=== PATIENT | male | born 1955 | race Caucasian/White ===

== ENCOUNTER 2020-12-21 13:24 | Outpatient (CLI) | payer SELFPAY ==
[2020-12-22 14:13] LABS: COVID-19 RT-PCR UVMMC Result Negative (Negative)
== END 2020-12-21 13:25 | disposition home or self-care (01) ==
PROVIDERS: PCP Nurse Practitioner Family; Visit Provider Nurse Practitioner Family
DX: Z20.822 Contact with and (suspected) exposure to COVID-19 (principal)
CPT/HCPCS: U0003

== ENCOUNTER 2021-01-02 03:18 | Inpatient (IN) | payer MEDICARE, SELFPAY ==
[2021-01-02] VITALS (25 sets, daily range): BP systolic 113–173; BP diastolic 76–99; PULSE 65–94; RESP 16–29; TEMP 36.5–36.9; O2SAT 94–98
--- NOTE | 2021-01-02 03:33 | NUR.NOTE ---
Nursing Note: Living at the [facility] for last three weeks and slid down between chair and bed earlier today. Pt has amputation to left lower extremity. Hx of alcohol use, but has not drank any in last year. History of uncontrolled diabetes with levels 350-450 at baseline.
[2021-01-02 03:58] LABS: Abs Immature Grans 0.01 10^3/uL (0.0-0.06); Absolute Basophil Count 0.02 10^3/uL (0.0-0.2); Absolute Eosinophil Count 0.21 10^3/uL (0.0-0.7); Absolute Lymphocyte Count 0.87 10^3/uL (1.2-3.4); Absolute Monocyte Count 0.55 10^3/uL (0.1-0.8); Absolute Neutrophil Count 4.08 10^3/uL (1.2-6.7); Basophils % 0.3; Eosinophils % 3.7; HCT 40.3 % (40.0-50.0); HGB 14.1 g/dL (13.5-17.5); Immature Grans % 0.2; Lymphocytes % 15.2; MCH 32.4 pg (27.0-33.0); MCV 92.6 fL (80-95); MPV 10.6 fL (8.0-11.0); Monocytes % 9.6; Nucleated RBC 0 %; RBC 4.35 10^6/uL (4.36-5.78); RDW 13.9 % (11.8-14.1); RDW-SD 47.8 fL; WBC 5.74 10^3/uL (4.4-10.8)
--- NOTE | 2021-01-02 03:59 | ED.GENADUL_ITS ---
Discharge Plan Disposition Patient Disposition: [facility] INPATIENT Condition: Serious Discharge Details Clinical Impression: Altered mental status, Hepatic encephalopathy, Hyperglycemia Admit Date/Time: 01/03/21 08:05 Admit Provider: Ousmane Friedman Attending Provider: Ousmane Friedman Primary Care Provider: Tammie Woodward ED Provider: Juaquin Mendoza Discharge Data Discharge Date/Time-TO BE ENTERED AT DEPARTURE: 01/02/21 06:09 Medical Decision Making 4:00 ?65-year-old male history of diabetes, hypertension, prior alcohol abuse, cirrhosis, elevated ammonia on lactulose, sent from assisted living facility with altered mental status, hallucinating and with nausea and vomiting. Apparently had an episode with heart rate above 200. Patient is hypertensive. Afebrile and not currently tachycardic. Suspect acute delirium, consider Warnicke's encephalopathy, hepatic encephalopathy versus urinary tract infection. CT head to assess for intracranial pathology. EKG to assess for arrhythmia. Will administer thiamine 100 mg IV. 5:26 --CT head interpreted by radiology, no acute intracranial abnormality. Screening ECG was reviewed and interpreted by me: Please see report, left bundle branch pattern present, no STEMI. Labs reviewed and patient does have elevated glucose which is consistent with his baseline 300-400 range. He has no anion gap acidosis. He does have hyperammonia, unclear of baseline. We will give him a dose of lactulose. Urinalysis reviewed and negative. Suspect hepatic encephalopathy. Plan to hospitalize as patient cannot safely be transferred back to assisted living. I called and spoke with Dr. Friedman, on-call hospitalist, discussed ED presentation course including diagnostics, he will admit the patient. I called [facility] supervisor and spoke with her about patient needs including frequent redirection and fall risk to ensure safe transition to [facility] floor. --Patient noted to be slightly anxious and also with persistent nausea and dry heaving. I will give Haldol 2 mg IM for his nausea and as anxiolytic. HPI General Mode of arrival: EMS . Date/Time Provider Initiated Documentation: 01/02/21 03:46 . Limitations to Documentation: altered mental status . Information obtained by: patient and EMS . HPI Narrative: 65-year-old male with multiple medical problems including prior history of alcoholism, history of hepatitis C that was treated, cirrhosis, esophageal varices, status post left leg AKA 07/05 complicated by postoperative infection, diabetes type 2, psoriasis, hypertension, COPD, anxiety, peripheral vascular disease, presents from [place] in assisted living facility with altered mental status. Per staff at the assisted living facility patient has been hallucinating and not able to form clear sentences recently. Is noted to have shaking, nausea and vomiting. There is note in transfer paperwork that he had a resting heart rate of 240 but then decreased to 91. Patient notes chronic unchanged bilateral leg pain. He denies any new pain. He has no complaint. History and review of systems is limited secondary to altered mental status. Related Data Home Medications Medication Instructions Recorded Confirmed Xifaxan 550 mg PO BID 01/02/21 01/02/21 buspirone 15 mg PO BID 01/02/21 01/02/21 docusate sodium [Colace] 100 mg PO BID 01/02/21 01/02/21 famotidine 10 mg PO DAILY 01/02/21 01/02/21 ferrous sulfate 325 mg PO Q OTHER DAY 01/02/21 01/02/21 furosemide 40 mg PO DAILY 01/02/21 01/02/21 melatonin 3 mg PO HS PRN 01/02/21 01/02/21 multivitamin 1 tab PO DAILY 01/02/21 01/02/21 nystatin 1 applic TOPICAL BID 01/02/21 01/02/21 omeprazole 20 mg PO BID 01/02/21 01/02/21 ondansetron HCl [Zofran] 4 mg PO Q6H PRN 01/02/21 01/02/21 polyethylene glycol 3350 [Miralax] 17 g PO BID 01/02/21 01/02/21 propranolol 20 mg PO BID 01/02/21 01/02/21 tramadol 50 mg PO BID 01/02/21 01/02/21 trazodone 50 mg PO HS 01/02/21 01/02/21 venlafaxine 75 mg PO DAILY 01/02/21 01/02/21 vitamin B complex 1 cap PO DAILY 01/02/21 01/02/21 zonisamide 75 mg PO BID 01/02/21 01/02/21 acetaminophen [Tylenol] 650 mg PO Q6H PRN #60 tab 01/05/21 blood sugar diagnostic [Advanced #100 ea 01/05/21 Gluc Meter Test Strip] blood-glucose meter #1 ea 01/05/21 insulin aspart U-100 [Novolog 12 unit SUBCUT 0800,1200,1700 #15 01/05/21 Flexpen U-100 Insulin] ml insulin glargine [Lantus Solostar 36 unit SUBCUT HS #15 ml 01/05/21 U-100 Insulin] lactulose 30 g PO Q2H PRN PRN #1500 ml 01/05/21 lactulose 30 g PO QID #4000 ml 01/05/21 sennosides [senna] 8.6 mg PO BID #60 tab 01/05/21 spironolactone 100 mg PO DAILY #30 tab 01/05/21 lancets [Lancets, Super Thin] #200 ea 01/06/21 Previous Rx's Medication Instructions Recorded acetaminophen [Tylenol] 650 mg PO Q6H PRN #60 tab 01/05/21 blood sugar diagnostic [Advanced #100 ea 01/05/21 Gluc Meter Test Strip] blood-glucose meter #1 ea 01/05/21 insulin aspart U-100 [Novolog 12 unit SUBCUT 0800,1200,1700 #15 01/05/21 Flexpen U-100 Insulin] ml insulin glargine [Lantus Solostar 36 unit SUBCUT HS #15 ml 01/05/21 U-100 Insulin] lactulose 30 g PO Q2H PRN PRN #1500 ml 01/05/21 lactulose 30 g PO QID #4000 ml 01/05/21 sennosides [senna] 8.6 mg PO BID #60 tab 01/05/21 spironolactone 100 mg PO DAILY #30 tab 01/05/21 lancets [Lancets, Super Thin] #200 ea 01/06/21 Allergies Allergy/AdvReac Type Severity Reaction Status Date / Time citalopram Allergy Unknown Unverified 01/02/21 03:33 codeine Allergy Unknown Unverified 01/02/21 03:33 interferon beta-1a Allergy Unknown Unverified 01/02/21 03:33 morphine Allergy Unknown Unverified 01/02/21 03:33 peginterferon maral-2a Allergy Unknown Unverified 01/02/21 03:33 General Stated Complaint: AMS/LOC RODRIGO: 2 Review of Systems Unobtainable due to mental status [facility] Medical History (Updated 01/05/21 @ 11:50 by Rina Nails MD) Acute pain of both shoulders Alcohol abuse, in remission Alcoholic cirrhosis of liver with ascites Anemia combination of hemolysis, iron deficiency, anemia of chronic disease, blood loss. 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 Obesity Old lacunar stroke without late effect right frontal and left parietal lobe lacunar infarcts on MRI brain from 04/2020 Psoriasis Psoriatic arthritis Squamous cell carcinoma Streptococcal sepsis with septic left knee Surgical History (Updated 01/02/21 @ 13:21 by Rina Nails MD) History of arthroplasty of left knee requiring explantation due to septic left knee S/P AKA (above knee amputation) unilateral Due to multiple infections in left knee prosthesis Social History (Updated 01/02/21 @ 13:30 by Rina Nails MD) Smoking/Tobacco Use Status: Never Smoking risk assessment performed?: Yes Alcohol Intake: former Substance use type: former substance user and crack/cocaine Do you feel safe at home: Yes Exam Const General: no acute distress Nutritional Appearance: overweight Orientation: alert Limitations: altered mental status HENMT Head: normocephalic and atraumatic Mouth: moist mucous membranes Eyes Conjunctivae: normal conjunctivae Sclera: normal sclerae Neck Neck: trachea midline and supple Resp Auscultation: clear to auscultation bilaterally, no rales, no rhonchi and no wheezes Cardio Rate: regular rate and not tachycardic Rhythm: regular rhythm GI Palpation: soft, not firm, no guarding, no masses, not rigid and nontender Skin Rashes: rashes noted (Psoriatic rash back) Neuro General: patient alert, patient awake, oriented Patient Orientation: Person and Confused and tone normal Cognition: abnormal cognition Speech: other (Delayed response with word finding difficulty) Motor: other (No facial weakness, 5 out of 5 strength bilateral upper extremities) Sensory Exam: other (Sensation intact bilateral upper extremities) Extrem General: no edema Course Vital Signs Vital signs: Vital Signs Temperature 36.8 C 01/02/21 03:23 Pulse 88 01/02/21 03:23 Respiratory Rate 22 01/02/21 03:23 Blood Pressure 136/83 01/02/21 03:23 Pulse Oximetry 96 01/02/21 03:23 Temperature 36.8 C 01/02/21 03:23 Temperature Source Skin 01/02/21 03:23 Pulse 88 01/02/21 03:23 Respiratory Rate 18 01/02/21 03:36 Respiratory Effort Non-Labored 01/02/21 03:36 Respiratory Depth Normal 01/02/21 03:36 Respiratory Pattern Normal 01/02/21 03:36 Blood Pressure 136/83 01/02/21 03:23 Blood Pressure Position Sitting 01/02/21 03:23 Pulse Oximetry 96 01/02/21 03:23 Oxygen Delivery Method Room Air 01/02/21 03:23 Oxygen Flow Rate 0 01/02/21 03:23 Pain Level 4 01/02/21 03:23 Comment 01/02/21 03:23
--- NOTE | 2021-01-02 04:00 | RT.EKG_ITS ---
APPROVED REPORT Exam: Resting ECG Patient Location: E HR:77 bpm ECG Measurements Heart Rate 77 AXIS MO 152 P -38 QRSd 128 QRS -53 QT 416 T 42 QTc 471 Conclusion Sinus rhythm...normal P axis, V-rate 60- 99 Left bundle branch block...QRSd>120, broad/notched R
[2021-01-02] MEDS: THIAMINE 100 MG in Normal Saline 100 ML 200 MG IVPB (04:16)
[2021-01-02 04:20] LABS: ALT 32 U/L (16-63); AST 28 U/L (15-37); Alkaline Phosphatase 190 U/L (46-116); Anion Gap 7.4 mmol/L (3-11); BUN 19 mg/dL (7-18); Bilirubin, Total 1.9 mg/dL (0.2-1.0); CO2 28.6 mmol/L (21.0-32.0); CREATININE 1.1 mg/dL (0.70-1.30); Calcium 8.9 mg/dL (8.5-10.1); Chloride 99 mmol/L (98-107); Glucose 393 mg/dL (74-106); Magnesium 1.8 mg/dL (1.8-2.4); Platelet Count 97 10^3/uL (130-400); Potassium 4.4 mmol/L (3.5-5.1); Sodium 135 mmol/L (136-145); TSH (W/Ref FT4) 1.81 uIU/mL (0.36-3.74); Total Protein 7.6 g/dL (6.4-8.2); Troponin I < 0.05 ng/mL (<0.06)
[2021-01-02 04:21] LABS: Ammonia 113 umol/L (11-32)
[2021-01-02 04:22] LABS: ETHANOL BLOOD < 3.0 mg/dL (<3)
[2021-01-02 04:31] LABS: Source Nasal/Nares
[2021-01-02 04:34] LABS: Bilirubin Negative (Negative); Blood Negative (Negative); Clarity Sl Cloudy (Clear); Glucose 500 mg/dL (Negative); Ketones Negative (Negative); Leukocyte Esterase Negative (Negative); Nitrite Negative (Negative); Urobilinogen 0.2 EU/dL (Up TO 0.2); pH 7.5 (5-8)
[2021-01-02 04:45] LABS: *AMPHETAMINES SCREEN URINE Negative (Negative); *BARBITURATES SCREEN URINE Negative (Negative); *BENZODIAZEPINES SCREEN URINE Negative (Negative); Cannabinoids THC Negative (Negative); Cocaine Screen,Urine Negative (Negative); METHADONE URINE SCREEN Negative (Negative); OPIATES URINE SCREEN Negative (Negative)
[2021-01-02 04:46] LABS: Tricyclic Antidepressants Negative (Negative)
--- NOTE | 2021-01-02 05:00 | DI.CT_ITS ---
EXAM: CT HEAD WO CLINICAL HISTORY: altered mental status. TECHNIQUE: Imaging Protocol: Axial computed tomography images with coronal and sagittal reformatted images were created and reviewed COMPARISON: No exams were available for comparison FINDINGS: All images are degraded by motion artifact. There are no obvious skull fractures nor fluid in the visualized paranasal sinuses and mastoid air ce lls. There is no evidence of intracranial hemorrhage, mass effect, or shift of midline structures. There are no extra-axial fluid collections. The ventricles are not enlarged or shifted and there is no blo od within the ventricular system nor within the basal cisterns. There is some periventricular hypodensity consistent with chronic small vessel disease. This is most prominent in the left parietal region. IMPRESSION: There is periventricular hypodensity consistent with chronic small vessel disease, most prominent in the left parietal region. If clinically indicated follow-up MRI can be performed for added sensitivity and specificity. RADIATION DOSE DELIVERED: 728.87mGy.cm Total DLP DATA REPOSITORY: All CT scans at this facility are submitted to the National Radiology Data Registry (NRDR) Dose Index Registry (DIR) with the [employer] (ACR). RADIATION OPTIMIZATION: All CT scans at this facility use at least one of these dose optimization te chniques: automated exposure control; mA and/or kV adjustment per patient size (includes targeted exa ms where dose is matched to clinical indication); or iterative reconstruction.
--- NOTE | 2021-01-02 05:21 | DI.VRAD_ITS ---
PROCEDURE INFORMATION: Exam: CT Head Without Contrast Exam date and time: 01/02/2021 3:50 AM Age: 65 years old Clinical indication: Altered mental status/memory loss and speech disturbance; Confusion or disorientation; Unspecified TECHNIQUE: Imaging protocol: Computed tomography of the head without contrast. Radiation optimization: All CT scans at this facility use at least one of these dose optimization techniques: automated exposure control; mA and/or kV adjustment per patient size (includes targeted exams where dose is matched to clinical indication); or iterative reconstruction. COMPARISON: No relevant prior studies available. FINDINGS: Brain: Normal. No hemorrhage. Unremarkable white matter. No mass effect. Cerebral ventricles: No ventriculomegaly. Bones/joints: Unremarkable. No acute fracture. Paranasal sinuses: Visualized sinuses are unremarkable. No fluid levels. Mastoid air cells: Visualized mastoid air cells are well aerated. Soft tissues: Unremarkable. IMPRESSION: No acute intracranial abnormality. Dictated and Authenticated by: Camilo Cavazos MD. Ordering:NIECY Reza MD
[2021-01-02] MEDS: Lactulose 20 GM/30 ML CUP 30 GM PO (05:26)
[2021-01-02] MEDS: Haloperidol 5 MG/ML VIAL 2 MG IM (05:51)
[2021-01-02 06:01] LABS: COVID-19 PCR Negative (Negative)
--- NOTE | 2021-01-02 06:03 | HPE_ITS ---
Date of service: 01/02/21 Time of Service: 06:03 Assessment and Plan Assessment and plan (1) Hepatic encephalopathy: Start date: 01/02/21 Status: Acute Assessment and plan: This is a 65-year-old gentleman with alcoholic cirrhosis and presenting with worsening hepatic encephalopathy. His ammonia level is elevated but other lab evaluation appear to be stable and his chronically unstable state. He will be admitted for observation and increase dosing of lactulose with follow-up of lab and mentation. He is a full code. Plans are for patient to return to the same living situation if he is safe. PT may want to evaluate him for safe transfer for wheelchair ambulation. (2) Hyperglycemia: Start date: 01/02/21 Status: Acute Assessment and plan: Patient has no history of diabetes or treatment for diabetes on his outpatient records. Before meals and at bedtime glucometers will be monitored with coverage using short acting insulin. Consider checking hemoglobin A1c. (3) Alcoholic cirrhosis of liver with ascites: Status: Chronic Assessment and plan: Lab appears stable with patient to be monitored as treating hepatic encephalopathy. Follow-up ammonia levels. Check prothrombin time. History of Present Illness History of Present Illness Chief Complaint: Altered mental status. Narrative: This is a 65-year-old male patient who resides at an assisted living in [facility] who was sent to the ED for evaluation because of altered mental status. He does have a history of alcoholic cirrhosis with encephalopathy on lactulose twice daily. He just moved to this facility about 1 week ago and it is uncertain whether his diet has changed or medications have been compliant. Evaluation in ED found no other reason for mental status changes and patient was admitted for treatment of hepatic encephalopathy. He does not appear to be far from his baseline and was admitted to observation. He is a full code. See ED report for review. Review of Systems Narrative: 13 point review of systems otherwise unrevealing or unobtainable with patient's confusion and encephalopathic state. He is a poor historian. [facility] Medical History (Updated 01/02/21 @ 10:13 by Ousmane Friedman) Alcoholic cirrhosis of liver with ascites Diabetes type 2, uncontrolled History of left above knee amputation Hypertension Surgical History (Updated 01/02/21 @ 06:09 by Ousmane Friedman) S/P AKA (above knee amputation) unilateral Social History Smoking/Tobacco Use Status: Never Smoking risk assessment performed?: Yes Alcohol Intake: former Substance use type: does not use Do you feel safe at home: Yes Meds Home Medications and Allergies Allergies Allergy/AdvReac Type Severity Reaction Status Date / Time citalopram Allergy Unknown Unverified 01/02/21 03:33 codeine Allergy Unknown Unverified 01/02/21 03:33 interferon beta-1a Allergy Unknown Unverified 01/02/21 03:33 morphine Allergy Unknown Unverified 01/02/21 03:33 peginterferon maral-2a Allergy Unknown Unverified 01/02/21 03:33 Home Medications Medication Instructions Recorded Confirmed Type acetaminophen [Tylenol] 650 mg PO Q6H PRN 01/02/21 01/02/21 History buspirone 15 mg PO BID 01/02/21 01/02/21 History docusate sodium [Colace] 100 mg PO BID 01/02/21 01/02/21 History famotidine 10 mg PO DAILY 01/02/21 01/02/21 History ferrous sulfate 325 mg PO Q OTHER DAY 01/02/21 01/02/21 History furosemide 40 mg PO DAILY 01/02/21 01/02/21 History ibuprofen 600 mg PO Q6H 01/02/21 01/02/21 History lactulose 30 ml PO BID 01/02/21 01/02/21 History melatonin 3 mg PO HS PRN 01/02/21 01/02/21 History multivitamin 1 tab PO DAILY 01/02/21 01/02/21 History nystatin 1 applic TOPICAL BID 01/02/21 01/02/21 History omeprazole 20 mg PO BID 01/02/21 01/02/21 History ondansetron HCl [Zofran] 4 mg PO Q6H PRN 01/02/21 01/02/21 History polyethylene glycol 3350 [Miralax] 17 g PO BID 01/02/21 01/02/21 History propranolol 20 mg PO BID 01/02/21 01/02/21 History rifaximin [Xifaxan] 550 mg PO BID 01/02/21 01/02/21 History sennosides [senna] 8.6 mg PO DAILY 01/02/21 01/02/21 History spironolactone 25 mg PO DAILY 01/02/21 01/02/21 History tramadol 50 mg PO BID 01/02/21 01/02/21 History trazodone 50 mg PO HS 01/02/21 01/02/21 History venlafaxine 75 mg PO DAILY 01/02/21 01/02/21 History vitamin B complex 1 cap PO DAILY 01/02/21 01/02/21 History zonisamide 75 mg PO BID 01/02/21 01/02/21 History Exam Narrative Exam Narrative: General: Patient appears older than stated age, oriented to person, possibly place and not to time. He is in no acute distress. Is sitting up in bed and is obese and appears fairly immobile state that he is wheelchair- bound. He does have a left AKA. HEENT: Normocephalic, coarsened facial features without swelling, eyes with pupils equal and reactive to light symmetrically, extraocular movement intact and sclera anicteric. Oropharynx with fair dentition and moist mucosa. Neck: Supple without JVD. Lungs: Fair aeration and clear to auscultation. Back: Stooped posture without CVA tenderness. Heart: Regular rate and rhythm with no appreciable murmurs or gallops. Abdomen: Obese contour, soft nontender to palpation with no focalizing guarding. Patient examined sitting up. Genitalia/rectal: Exam deferred. Extremities: Left AKA stump clean and dry, right lower extremity with edema which appears chronic and nonpitting, joints with decreased range of motion. Skin: Pale, warm and dry. Diffuse plaque-like rash with silver colored scales over trunk and mostly lower back consistent with severe plaque psoriasis. Neuro: Cranial nerves II through XII gross intact, no focal motor deficits. Patient is confused with some obtundation. To be metabolic. Psych: Decreased mentation as mentioned, affect flattened with little variation but fair eye contact. Mood appears depressed. No abnormal thought processes but patient confused. Remote and recent memory difficult to assess with metabolic state. Results Imaging Imaging Studies: Exam: CT Head Without Contrast Exam date and time: 01/02/2021 3:50 AM Age: 65 years old Clinical indication: Altered mental status/memory loss and speech disturbance; Confusion or disorientation; Unspecified TECHNIQUE: Imaging protocol: Computed tomography of the head without contrast. Radiation optimization: All CT scans at this facility use at least one of these dose optimization techniques: automated exposure control; mA and/or kV adjustment per patient size (includes targeted exams where dose is matched to clinical indication); or iterative reconstruction. COMPARISON: No relevant prior studies available. FINDINGS: Brain: Normal. No hemorrhage. Unremarkable white matter. No mass effect. Cerebral ventricles: No ventriculomegaly. Bones/joints: Unremarkable. No acute fracture. Paranasal sinuses: Visualized sinuses are unremarkable. No fluid levels. Mastoid air cells: Visualized mastoid air cells are well aerated. Soft tissues: Unremarkable. IMPRESSION: No acute intracranial abnormality. Dictated and Authenticated by: Camilo Cavazos MD. Labs Result diagrams: 01/02/21 03:50 01/02/21 03:50 Labs: Laboratory Results - last 24 hr 01/02/21 01/02/21 01/02/21 03:50 03:50 03:50 WBC 5.74 RBC 4.35 L Hgb 14.1 Hct 40.3 MCV 92.6 MCH 32.4 MCHC 35.0 RDW 13.9 Plt Count 97 L MPV 10.6 Immature Gran % 0.2 Neutrophils % 71.0 Lymphocytes % 15.2 Monocytes % 9.6 Eosinophils % 3.7 Basophils % 0.3 Nucleated RBC % 0 Absolute Neutrophils 4.08 Absolute Lymphocytes 0.87 L Absolute Monocytes 0.55 Absolute Eosinophils 0.21 Absolute Basophils 0.02 Sodium 135 L Potassium 4.4 Chloride 99 Carbon Dioxide 28.6 Anion Gap 7.4 BUN 19 H Creatinine 1.1 Estimated GFR/1.73 m2 >= 60.00 Glucose 393 H Calcium 8.9 Magnesium 1.8 Total Bilirubin 1.9 H AST 28 ALT 32 Alkaline Phosphatase 190 H Ammonia 113 H Troponin I < 0.05 Total Protein 7.6 Albumin 3.0 L TSH 1.81 Urine Color Urine Clarity Urine pH Ur Specific Rodney Urine Protein Urine Ketones Urine Blood Urine Nitrite Urine Bilirubin Urine Urobilinogen Ur Leukocyte Esterase Urine Glucose Urine Opiates Screen Urine Methadone Screen Ur Barbiturates Screen Ur Tricyclics Screen Ur Amphetamines Screen U Benzodiazepines Scrn Urine Cocaine Screen Ur THC Screen Ethyl Alcohol < 3.0 COVID-19 Source 01/02/21 01/02/21 01/02/21 04:10 04:10 04:15 WBC RBC Hgb Hct MCV MCH MCHC RDW Plt Count MPV Immature Gran % Neutrophils % Lymphocytes % Monocytes % Eosinophils % Basophils % Nucleated RBC % Absolute Neutrophils Absolute Lymphocytes Absolute Monocytes Absolute Eosinophils Absolute Basophils Sodium Potassium Chloride Carbon Dioxide Anion Gap BUN Creatinine Estimated GFR/1.73 m2 Glucose Calcium Magnesium Total Bilirubin AST ALT Alkaline Phosphatase Ammonia Troponin I Total Protein Albumin TSH Urine Color Yellow Urine Clarity Sl cloudy Urine pH 7.5 Ur Specific Rodney 1.020 Urine Protein Negative Urine Ketones Negative Urine Blood Negative Urine Nitrite Negative Urine Bilirubin Negative Urine Urobilinogen 0.2 Ur Leukocyte Esterase Negative Urine Glucose 500 H Urine Opiates Screen Negative Urine Methadone Screen Negative Ur Barbiturates Screen Negative Ur Tricyclics Screen Negative Ur Amphetamines Screen Negative U Benzodiazepines Scrn Negative Urine Cocaine Screen Negative Ur THC Screen Negative Ethyl Alcohol COVID-19 Source Nasal/nares Last Vital Signs Temp 36.8 C 01/02/21 03:23 Pulse 72 01/02/21 05:24 Resp 20 01/02/21 05:52 BP 113/83 01/02/21 05:24 Pulse Ox 98 01/02/21 05:06 COVID-19 Screening Have you, or household traveled for leisure in last 14 days?: No Had IN PERSON contact w/suspected or confirmed C-19 person: No
[2021-01-02 08:08] LABS: INR 1.1 (0.9-1.1); Prothrombin Time 11.5 sec (9.3-11.0)
--- NOTE | 2021-01-02 08:34 | INITIAL_ITS ---
- If Service Date Differs Date of service: 01/02/21 Time of Service: 11:42 Care Management Initial Assess REASON FOR HOSPITALIZATION:: Hepatic Encephalopathy PAST MEDICAL HISTORY/PAST SURGICAL HISTORY:: Alcoholic cirrhosis of liver with ascities, DM type 2 uncontrolled, left above knee amputation, hypertension, hyperglycemia PREVIOUS FUNCTIONAL STATUS/SOCIAL/FAMILY SUPPORTS:: Perez resides at [facility] assisted living [facility]. His brother Rich resides nearby in [place], [place]. CURRENT FUNCTIONAL STATUS:: Perez is currently confused. PT was preparing to work with him. Treatment plan Per MD: Suspect acute delirium, consider Warnicke's encephalopathy, hepatic encephalopathy versus urinary tract infection. CT head to assess for intracranial pathology. EKG to assess for arrhythmia. ADVANCE DIRECTIVES:: None on file at [facility]. CODE STATUS:: Full Code INSURANCE COVERAGE / FINANCIAL ISSUES:: Medicare CURRENT HOME/COMMUNITY SERVICES/EQUIPMENT:: Assisted living facility; level 3 at [facility]. PRIMARY CARE PHYSICIAN:: Tammie Woodward POTENTIAL DISCHARGE NEEDS:: Coordinated return to [facility]. PATIENT/FAMILY EDUCATION NEEDS:: Review discharge instructions, discuss Ask Me [employer]. ANTICIPATED BARRIERS TO DISCHARGE:: None identified. TRANSPORTATION:: Via private vehicle with his brother. PLAN:: Perez will return to [facility] when ready per MD. He will follow up with his PCP and plan of care as prescribed. He will transport via private vehicle with his brother, Rich.
[2021-01-02] MEDS: Lactulose 20 GM/30 ML CUP PO ×4 (08:56→21:33)
[2021-01-02] MEDS: Insulin Aspart 300 UNITS/3 ML PEN SC ×4 (08:56→21:37)
[2021-01-02] MEDS: Zonisamide 25 MG CAP 75 MG PO ×2 (08:59→20:18)
[2021-01-02] MEDS: Famotidine 20 MG TAB 10 MG PO (08:59)
[2021-01-02] MEDS: Ibuprofen 200 MG TAB 600 MG PO (09:00)
[2021-01-02] MEDS: Propranolol 20 MG TAB PO ×2 (09:00→20:18)
[2021-01-02] MEDS: busPIRone 15 MG TAB PO ×2 (09:00→20:18)
[2021-01-02] MEDS: Rifaximin 550 MG TAB PO ×2 (09:00→20:18)
[2021-01-02] MEDS: traMADol 50 MG TAB PO ×2 (09:00→20:17)
[2021-01-02] MEDS: Ferrous Sulfate 325 MG TAB PO (09:01)
[2021-01-02] MEDS: Venlafaxine 37.5 MG CAPCR 75 MG PO (09:01)
[2021-01-02] MEDS: Spironolactone 25 MG TAB PO (09:01)
[2021-01-02] MEDS: Omeprazole 20 MG CAPCR PO ×2 (09:01→20:16)
[2021-01-02] MEDS: Furosemide 40 MG TAB PO (09:01)
[2021-01-02] MEDS: Multivitamin TAB 1 TAB PO (09:01)
[2021-01-02] MEDS: Nystatin OINT 15 GM TUBE TP ×2 (10:29→20:18)
--- NOTE | 2021-01-02 11:44 | IN_ITS ---
Date of service: 01/02/21 Time of Service: 11:20 PT Notes Visit Reasons: HEPATIC ENCEPHALOPATHY Inpatient Physical Therapy Evaluation Date: 01/02/21 Referring Doctor: Ousmane Friedman PT Orders: PT CONSULT: Limited ability, eval and treat Precautions: Fall risk, standard Patient Profile/Admitting Diagnosis: Patient presented to ER via EMS with symptoms of nausea, vomiting and hallucinations with remarkable change in altered mental status as observed by staff members at [facility] in, where he resides. He was admitted for management of hepatic encephalopathy, alcoholic psoriasis, and hyperglycemia in the presence of a left above-knee amputation. PMHX: Medical History (Updated 01/02/21 @ 10:13 by Ousmane Friedman) Alcoholic cirrhosis of liver with ascites Diabetes type 2, uncontrolled History of left above knee amputation Hypertension Surgical History (Updated 01/02/21 @ 06:09 by Ousmane Friedman) S/P AKA (above knee amputation) unilateral Social History/Home Situation: Resides at [facility] in an assisted living facility. States that he does not have a left lower extremity prosthetic, as the ID will not pay for it for him. Current Functional Limitations: Unable to ambulate, essentially wheelchair- bound. Able to complete bed to chair, and vice versa, transfers with and without use of walker. Equipment Owned/DME: WC. Unable to clearly communicate otherwise. Subjective: Efren reporting he is having pain all over, he has a lot of phantom pain. He is able to transfer himself independently from bed to chair every day, does not always use an assistive device for stand pivot transfer he left himself from bed into the wheelchair. And vice versa. Admits that he has hallucinations. Objective: General Observation: Lying in bed with HOB at 45 degrees. Above-knee amputee, no prosthetic. Notable skin lesions and scratches throughout his face legs and arms. Mental Status: Intermittent moments of clarity, other moments were he seems to fade away. He is alert to person. Unclear of place or time. Pain: States he is in pain, unable to rate. Vital Signs: BP 136/87, HR 86 ROM: Right Upper Extremity: Grossly WNL Left Upper Extremity: Grossly WNL Right Lower Extremity: Grossly WNL Left Lower Extremity: Left hip is grossly WNL, above-knee amputee. Strength: Right Upper Extremity: Grossly 5/5 Left Upper Extremity: Grossly 5/5 Right Lower Extremity: Grossly 5/5 Left Lower Extremity: Left hip flexion 5/5 Sensation: Intact Bed Mobility/Transfers: Bed mobility independent Supine to sit edge of bed distant supervision Sit to stand at walker, CG x1, supervision x1 Stand top of it to chair, with walker, CG x1, supervision x1 Stand to sit supervision x1, CG x1 Gait: Unable Balance: Static Sitting: Good Dynamic Sitting: Good Static Standing: Poor Dynamic Standing: Poor Special Tests: Mobility Limitations Standardized Measure [facility] 6 clicks Basic Mobility Inpatient Short Form: 46% disability Informed Consent/Education: Patient instructed in purpose of PT consult and plan of care. Assessment: Patient is a 65 year old male referred to physical therapy services with the diagnosis of limited ability secondary to hepatic encephalopathy, complications of alcoholic cirrhosis and hyperglycemia in the setting of left above-knee amputation x1 year. He does not utilize a prosthetic, and he does not have one. Primarily resides in wheelchair, able to do independent transfers without slide board. Patient presents with clinical signs and symptoms consistent with limited ability due to above diagnosis, and require skilled PT intervention to maintain functional level, to return safely to [facility] situation. Impairment level findings: Poor dynamic balance, [id number] left amputation. Impairments are contributing to the following functional limitations: Nonambulatory, requiring supervision with transfers, AMP AC score of 46% disability. Patient is assessed as a Moderate 73054 complexity based on the following: History: See comorbidities Examination: See above impairments and functional imitations Presentation: Evolving Decision Making:, Moderate with standardized measure of 46% disability Goals: Goals X1 week 1. Supine-Sit independent 2. Sit-Supine independent 3. Sit-Stand independent 4. Stand-Sit independent 5. Bed-Chair independent 6. Chair-Bed independent Plan of Care/Treatment Plan: 1-2x/day, 7 days/week x 1 week. Plan of care has been reviewed with the [facility] providing the service under Physical Therapy direction. Initiate Physical Therapy intervention for strengthening, bed mobility, transfers, gait, stairs, balance training, use of assistive device. DISCHARGE RECOMMENDATIONS: Return to [facility] when medically stable TREATMENT CODE/TIME: 36859, 20 minutes, 11:22-11:40 AM Thank you for this referral Documented with [employer] voice recognition software.
[2021-01-02 12:33] LABS: Anion Gap 8.6 mmol/L (3-11); BUN 19 mg/dL (7-18); CO2 25.4 mmol/L (21.0-32.0); CREATININE 1.1 mg/dL (0.70-1.30); Calcium 9.4 mg/dL (8.5-10.1); Chloride 100 mmol/L (98-107); Glucose 455 mg/dL (74-106); Potassium 4.3 mmol/L (3.5-5.1); Sodium 134 mmol/L (136-145)
--- NOTE | 2021-01-02 13:48 | W.PM.PROGNOT ---
Date of Service Date of service: 01/02/21 Time of Service: 13:48 Subjective Subjective Interval history since last seen: Patient seen in brief follow up. Mr Newton remains confused. He is A&Ox1. Reports epigastric pain and a lot of nausea but not right now. He does not know that he is in [facility], or that he is in the hospital. He thinks the year is 2020. He has been hyperglycemic - 300s - 400s. Not on diabetes meds at [facility]. Reviewed medical records. The patient has a h/o Hep C and alcoholic cirrhosis with varices. He has been on NSAIDS. Based on description of abdominal discomfort, I have concerns for portal gastropathy/gastritis. D/c NSAIDS, sc heparin. Obtain hemoccult. Obtain anemia studies. Still no BM - increase lactulose to Q4H with target of 3 liquid BMs per day. Continue rifaximin. Continue to watch on tele: has been on QT interval prolonging meds. No evidence of QT prolongation at this time. I have updated his past medical history in the computer to reflect the reviewed records. Objective Last Vital Signs Temp 36.7 C 01/02/21 12:08 Pulse 75 01/02/21 12:08 Resp 18 01/02/21 12:08 BP 153/99 H 01/02/21 12:08 Pulse Ox 97 01/02/21 12:08 Laboratory Results - last 24 hr 01/02/21 01/02/21 01/02/21 03:50 03:50 03:50 WBC 5.74 RBC 4.35 L Hgb 14.1 Hct 40.3 MCV 92.6 MCH 32.4 MCHC 35.0 RDW 13.9 Plt Count 97 L MPV 10.6 Immature Gran % 0.2 Neutrophils % 71.0 Lymphocytes % 15.2 Monocytes % 9.6 Eosinophils % 3.7 Basophils % 0.3 Nucleated RBC % 0 Absolute Neutrophils 4.08 Absolute Lymphocytes 0.87 L Absolute Monocytes 0.55 Absolute Eosinophils 0.21 Absolute Basophils 0.02 PT INR Sodium 135 L Potassium 4.4 Chloride 99 Carbon Dioxide 28.6 Anion Gap 7.4 BUN 19 H Creatinine 1.1 Estimated GFR/1.73 m2 >= 60.00 Glucose 393 H Calcium 8.9 Magnesium 1.8 Total Bilirubin 1.9 H AST 28 ALT 32 Alkaline Phosphatase 190 H Ammonia 113 H Troponin I < 0.05 Total Protein 7.6 Albumin 3.0 L TSH 1.81 Urine Color Urine Clarity Urine pH Ur Specific [place] Urine Protein Urine Ketones Urine Blood Urine Nitrite Urine Bilirubin Urine Urobilinogen Ur Leukocyte Esterase Urine Glucose Urine Opiates Screen Urine Methadone Screen Ur Barbiturates Screen Ur Tricyclics Screen Ur Amphetamines Screen U Benzodiazepines Scrn Urine Cocaine Screen Ur THC Screen Ethyl Alcohol < 3.0 COVID-19 Source SARS-CoV-2 (PCR) 01/02/21 01/02/21 01/02/21 04:10 04:10 04:15 WBC RBC Hgb Hct MCV MCH MCHC RDW Plt Count MPV Immature Gran % Neutrophils % Lymphocytes % Monocytes % Eosinophils % Basophils % Nucleated RBC % Absolute Neutrophils Absolute Lymphocytes Absolute Monocytes Absolute Eosinophils Absolute Basophils PT INR Sodium Potassium Chloride Carbon Dioxide Anion Gap BUN Creatinine Estimated GFR/1.73 m2 Glucose Calcium Magnesium Total Bilirubin AST ALT Alkaline Phosphatase Ammonia Troponin I Total Protein Albumin TSH Urine Color Yellow Urine Clarity Sl cloudy Urine pH 7.5 Ur Specific [place] 1.020 Urine Protein Negative Urine Ketones Negative Urine Blood Negative Urine Nitrite Negative Urine Bilirubin Negative Urine Urobilinogen 0.2 Ur Leukocyte Esterase Negative Urine Glucose 500 H Urine Opiates Screen Negative Urine Methadone Screen Negative Ur Barbiturates Screen Negative Ur Tricyclics Screen Negative Ur Amphetamines Screen Negative U Benzodiazepines Scrn Negative Urine Cocaine Screen Negative Ur THC Screen Negative Ethyl Alcohol COVID-19 Source Nasal/nares SARS-CoV-2 (PCR) Negative 01/02/21 01/02/21 06:51 12:15 WBC RBC Hgb Hct MCV MCH MCHC RDW Plt Count MPV Immature Gran % Neutrophils % Lymphocytes % Monocytes % Eosinophils % Basophils % Nucleated RBC % Absolute Neutrophils Absolute Lymphocytes Absolute Monocytes Absolute Eosinophils Absolute Basophils PT 11.5 H INR 1.1 Sodium 134 L Potassium 4.3 Chloride 100 Carbon Dioxide 25.4 Anion Gap 8.6 BUN 19 H Creatinine 1.1 Estimated GFR/1.73 m2 >= 60.00 Glucose 455 H Calcium 9.4 Magnesium Total Bilirubin AST ALT Alkaline Phosphatase Ammonia Troponin I Total Protein Albumin TSH Urine Color Urine Clarity Urine pH Ur Specific [place] Urine Protein Urine Ketones Urine Blood Urine Nitrite Urine Bilirubin Urine Urobilinogen Ur Leukocyte Esterase Urine Glucose Urine Opiates Screen Urine Methadone Screen Ur Barbiturates Screen Ur Tricyclics Screen Ur Amphetamines Screen U Benzodiazepines Scrn Urine Cocaine Screen Ur THC Screen Ethyl Alcohol COVID-19 Source SARS-CoV-2 (PCR)
[2021-01-02] MEDS: Senna TAB 1 TAB PO ×2 (15:51→20:17)
[2021-01-02] MEDS: Docusate Sodium 100 MG CAP PO (20:18)
[2021-01-02] MEDS: traZODone 50 MG TAB PO (21:33)
[2021-01-02] MEDS: Insulin Glargine 300 UNITS/3 ML PEN 10 UNITS SC (21:35)
[2021-01-02] MEDS: Melatonin 3 MG TAB PO (22:25)
[2021-01-03] VITALS (9 sets, daily range): BP systolic 122–128; BP diastolic 69–86; PULSE 70–88; RESP 18; TEMP 36.3–37; O2SAT 95–97
[2021-01-03] MEDS: Lactulose 20 GM/30 ML CUP PO ×6 (01:58→22:30)
--- NOTE | 2021-01-03 04:10 | NUR.NOTE ---
Nursing Note: Beginning of the shift, patient was anxious, restless on bed, keeps on asking staff to dial mother's phone number. Spoke to his Mom x 3. Complained of unable to sleep. Melatonin PRN given at 2200 hrs., sleep soundly and easy arousable for meds. Remains sleeping until this time.
[2021-01-03 07:31] LABS: Abs Immature Grans 0.03 10^3/uL (0.0-0.06); Absolute Basophil Count 0.02 10^3/uL (0.0-0.2); Absolute Eosinophil Count 0.21 10^3/uL (0.0-0.7); Absolute Lymphocyte Count 0.83 10^3/uL (1.2-3.4); Absolute Monocyte Count 0.59 10^3/uL (0.1-0.8); Absolute Neutrophil Count 3.85 10^3/uL (1.2-6.7); Basophils % 0.4; Eosinophils % 3.8; HCT 39.7 % (40.0-50.0); Immature Grans % 0.5; MCH 32.4 pg (27.0-33.0); MCHC 35.3 % (32.0-36.0); MCV 91.9 fL (80-95); MPV 11.2 fL (8.0-11.0); Monocytes % 10.7; Neutrophils % 69.6; Nucleated RBC 0 %; RBC 4.32 10^6/uL (4.36-5.78); RDW 14.2 % (11.8-14.1); RDW-SD 47.8 fL; WBC 5.53 10^3/uL (4.4-10.8)
[2021-01-03 07:33] LABS: Ammonia 64 umol/L (11-32)
[2021-01-03 07:50] LABS: ALT 33 U/L (16-63); AST 35 U/L (15-37); Albumin 2.9 g/dL (3.4-5.0); Alkaline Phosphatase 165 U/L (46-116); Anion Gap 9.6 mmol/L (3-11); BUN 23 mg/dL (7-18); Bilirubin, Total 2.6 mg/dL (0.2-1.0); CO2 25.4 mmol/L (21.0-32.0); Calcium 9.2 mg/dL (8.5-10.1); Chloride 100 mmol/L (98-107); Glucose 336 mg/dL (74-106); Magnesium 1.7 mg/dL (1.8-2.4); Potassium 3.9 mmol/L (3.5-5.1); Sodium 135 mmol/L (136-145); Total Protein 7.2 g/dL (6.4-8.2)
[2021-01-03 08:16] LABS: Hemoglobin A1C 11.1 % (<5.7)
[2021-01-03 08:24] LABS: Platelet Count 87 10^3/uL (130-400)
[2021-01-03 08:25] LABS: Diff Comment PLT Morph Reviewed; RBC Morphology Normal
[2021-01-03] MEDS: Insulin Aspart 300 UNITS/3 ML PEN SC ×4 (08:29→22:32)
[2021-01-03] MEDS: Nystatin OINT 15 GM TUBE TP ×2 (08:29→20:20)
[2021-01-03] MEDS: busPIRone 15 MG TAB PO ×2 (08:30→20:19)
[2021-01-03] MEDS: Zonisamide 25 MG CAP 75 MG PO ×2 (08:30→20:20)
[2021-01-03] MEDS: Spironolactone 50 MG TAB PO (08:30)
[2021-01-03] MEDS: Propranolol 20 MG TAB PO ×2 (08:30→20:19)
[2021-01-03] MEDS: Famotidine 20 MG TAB 10 MG PO (08:30)
[2021-01-03] MEDS: Rifaximin 550 MG TAB PO ×2 (08:31→20:19)
[2021-01-03] MEDS: Multivitamin TAB 1 TAB PO (08:31)
[2021-01-03] MEDS: traMADol 50 MG TAB PO ×2 (08:31→20:20)
[2021-01-03] MEDS: Furosemide 40 MG TAB PO (08:31)
[2021-01-03] MEDS: Venlafaxine 37.5 MG CAPCR 75 MG PO (08:31)
[2021-01-03] MEDS: Omeprazole 20 MG CAPCR PO ×2 (08:31→20:19)
[2021-01-03] MEDS: Senna TAB 1 TAB PO ×2 (08:32→20:19)
[2021-01-03] MEDS: Docusate Sodium 100 MG CAP PO ×2 (08:39→20:19)
[2021-01-03] MEDS: Normal Saline 500 ML 30 ML IV (09:48)
[2021-01-03] MEDS: MAGNESIUM SULFATE 2 GM/50 ML BAG IVPB (09:48)
--- NOTE | 2021-01-03 10:41 | PDOC.CMPRO ---
- If Service Date Differs Date of service: 01/03/21 Time of Service: 10:41 Care Management Progress Note S/O:Perez was sitting up in bed when CM met with him. He was very alert and appeared much less confused that what was reported yesterday. Perez identified that he had trouble getting his medications because his doctors at the [place] and insurance company ([employer]) could not agree about who was responsible for paying their cost. He specifically mentioned Lactulose, but he has also not been receiving any treatment for the diabetes. [facility] since his P[facility] is from the [place]. A: Perez is a 65 year old man admitted on 01/02/21 with hepatic encephalopathy P:Perez will return to [facility] when ready per MD. He will follow up with his PCP and plan of care as prescribed. He will transport via private vehicle with his brother, Rich. CM will [facility] with [facility] (see above) and continue to support Perez and his discharge needs.
--- NOTE | 2021-01-03 11:55 | PGE_ITS ---
Date of Service Date of service: 01/03/21 Time of Service: 11:59 Assessment and Plan Assessment and plan (1) Hepatic encephalopathy: Status: Acute Assessment and plan: Improved with increase in dosing of lactulose. Target 3 liquid BMs per day. Continue rifaxamin. (2) Diabetes type 2, uncontrolled: Status: Chronic Assessment and plan: ?Untreated as outpatient. A1C 11.1. Increase long acting insulin. Add scheduled prandial insulin as well as increase corrective coverage. (3) Cirrhosis of liver without ascites: Status: Chronic Assessment and plan: Multifactorial, due to Hepatitis C and h/o EtOH abuse in remission. We have limited tylenol to 2 grams/day. Due to h/o esophageal varices and thrombocytopenia, the patient should never be on NSAIDS and his chemical DVT ppx is held. Continue propranolol. Will get extra lasix today. If BP tolerates, increase aldactone dose. (4) Thrombocytopenia: Status: Chronic Assessment and plan: As above Check B12/folate (5) Anemia: Status: Chronic Assessment and plan: Hemoccult negative. H/H stable. Will check anemia studies. (6) Esophageal varices in cirrhosis: Status: Chronic Assessment and plan: Continue beta prateek, PPI. No NSAIDs or chemical DVT Ppx (7) Hypomagnesemia: Status: Acute Assessment and plan: Replete, recheck in am (8) DVT prophylaxis: Status: Acute Assessment and plan: TEDs/SCDS. No chemical DVT ppx in setting of known esophageal varices as well as thrombocytopenia (9) Discharge planning issues: Status: Acute Assessment and plan: Full code Palliative care consulted PT consulted Subjective Subjective Interval history since last seen: Mr Newton has had two BMs so far today (none yesterday), none of them were diarrheal. Having said this, his mental status has improved significantly since yesterday. A&Ox3, answers questions quickly and sharply. Denies dizziness, chest pain, shortness of breath, nausea. It appears that he was not having 3 liquid BMs at [facility] - we had a long conversation about how important it is that he has 3 liquid BMs daily. Exam Narrative Exam Narrative: General: obese middle-aged male, A&Ox3, sitting up in a chair, no asterexis. Psoriatic plaques seen in various places. HEENT: EOMI, MMM Heart: RRR, no m/r/g Lungs: crackles at B bases Abdomen: soft, obese, nontender, no ascites Extremities: s/p L AKA; RLE without edema, clubbing, cyanosis. Objective Last Vital Signs Temp 36.4 C L 01/03/21 11:35 Pulse 74 01/03/21 11:35 Resp 18 01/03/21 11:35 BP 122/74 01/03/21 11:35 Pulse Ox 95 01/03/21 11:35 Laboratory Results - last 24 hr 01/02/21 01/02/21 01/03/21 03:50 12:15 07:12 WBC RBC Hgb Hct MCV MCH MCHC RDW Plt Count MPV Immature Gran % Neutrophils % Lymphocytes % Monocytes % Eosinophils % Basophils % Nucleated RBC % Absolute Neutrophils Absolute Lymphocytes Absolute Monocytes Absolute Eosinophils Absolute Basophils RBC Morphology Sodium 134 L 135 L Potassium 4.3 3.9 Chloride 100 100 Carbon Dioxide 25.4 25.4 Anion Gap 8.6 9.6 BUN 19 H 23 H Creatinine 1.1 1.0 Estimated GFR/1.73 m2 >= 60.00 >= 60.00 Glucose 455 H 336 H D Hemoglobin A1c Calcium 9.4 9.2 Magnesium 1.7 L Total Bilirubin 2.6 H AST 35 ALT 33 Alkaline Phosphatase 165 H Ammonia Total Protein 7.2 Albumin 2.9 L Ethyl Alcohol < 3.0 01/03/21 01/03/21 01/03/21 07:12 07:12 07:12 WBC 5.53 RBC 4.32 L Hgb 14.0 Hct 39.7 L MCV 91.9 MCH 32.4 MCHC 35.3 RDW 14.2 H Plt Count 87 L MPV 11.2 H Immature Gran % 0.5 Neutrophils % 69.6 Lymphocytes % 15.0 Monocytes % 10.7 Eosinophils % 3.8 Basophils % 0.4 Nucleated RBC % 0 Absolute Neutrophils 3.85 Absolute Lymphocytes 0.83 L Absolute Monocytes 0.59 Absolute Eosinophils 0.21 Absolute Basophils 0.02 RBC Morphology Normal Sodium Potassium Chloride Carbon Dioxide Anion Gap BUN Creatinine Estimated GFR/1.73 m2 Glucose Hemoglobin A1c 11.1 H Calcium Magnesium Total Bilirubin AST ALT Alkaline Phosphatase Ammonia 64 H Total Protein Albumin Ethyl Alcohol
[2021-01-03] MEDS: Insulin Aspart 300 UNITS/3 ML PEN 7 UNITS SC ×2 (12:05→17:04)
--- NOTE | 2021-01-03 12:28 | PT.INTREAT ---
PT Notes Visit Reasons: HEPATIC ENCEPHALOPATHY Inpatient Physical Therapy Treatment Note [facility] Date: 01/04/21 SUBJECTIVE: Perez indicated that he did not sleep well last night. Offers no complaints to me today. OBJECTIVE: [] BED MOBILITY/TRANSFERS Supine-sit: I Sit-stand: CGA Stand-sit: CGA Bed-Chair:CGA GAIT Assistive Device: FWW Weight bearing: R only (L AKA) Assist: CGA Distance: 4 hops approx 3' THEREX: performed a global LE strengthening routine while seated in recliner, see flowsheet for specific details ASSESSMENT: does very well with transfers. Very minimal assistance, which more for direction vs motion. PLAN: will continue POC. Look to add ankle wts for ex as well as progressing his ambulation to his tolerance. TREATMENT CODE/TIME: 25 min, [id number], [id number].
[2021-01-03] MEDS: Normal Saline Flush 10 ML SYR IVP ×2 (12:30→20:27)
[2021-01-03] MEDS: Furosemide 20 MG/2 ML VIAL IVP (12:30)
[2021-01-03] MEDS: Ondansetron 4 MG TAB PO (20:18)
[2021-01-03] MEDS: traZODone 50 MG TAB PO (22:29)
[2021-01-03] MEDS: Insulin Glargine 300 UNITS/3 ML PEN 20 UNITS SC (22:31)
[2021-01-04] VITALS (7 sets, daily range): BP systolic 119–147; BP diastolic 78–84; PULSE 81–99; RESP 18–20; TEMP 36.2–37.2; O2SAT 94–95
--- NOTE | 2021-01-04 | DI.US_ITS ---
APPROVED REPORT EXAM: Comprehensive 2D, Doppler, and color-flow Echocardiogram Patient Location: In-Patient Room/Bed: [facility] Senior Boiler Operator: Jody Gomes RDCS (AE) Indications: LBBB Other Information Study Quality: Fair. Technically limited study due to body habitus, inability to position patient. Conclusion This is a technically limited study. Left Ventricle : The left ventricle is normal size. Left ventricular systolic function is borderline. There is normal left ventricular wall thickness. There is normal LV segmental wall motion. The left ventricular diastolic function is normal. LVEF is 50%. Right Ventricle : Right ventricle is grossly normal in size. Right ventricular systolic function is g rossly normal. Atria : The left atrium size is normal. The right atrium size is normal. Valves: There are no hemodynamically significant valvular lesions. Great Vessels : The aortic root is normal in size. The ascending aorta is mildly dilated. The IVC was not visualized. Please see remainder of study for further details. Wall motion Left Ventricle The left ventricle is normal size. Left ventricular systolic function is borderline. There is normal left ventricular wall thickness. There is normal LV segmental wall motion. The left ventricular diast olic function is normal. There is no ventricular septal defect visualized. LVEF is 50%. Right Ventricle Right ventricle is grossly normal in size. Right ventricular systolic function is grossly normal. Atria The left atrium size is normal. The right atrium size is normal. The interatrial septum is intact wit h no evidence for an atrial septal defect. Aortic Valve The Aortic valve is sclerotic. Aortic valve is probably trileaflet. There is no aortic valvular steno sis. No aortic regurgitation is present. Mitral Valve Mild mitral annular calcification. No evidence of mitral valve stenosis. Trace mitral regurgitation. Tricuspid Valve The tricuspid valve is normal in structure. There is no tricuspid valve stenosis. Trace tricuspid reg urgitation. Unable to assess PA pressure. Pulmonic Valve Pulmonic valve is not well visualized. There is no pulmonic valvular stenosis. There is no pulmonic v alvular regurgitation. Great Vessels The aortic root is normal in size. The ascending aorta is mildly dilated. The IVC was not visualized. Pericardium There is no pericardial effusion. 2D Dimensions IVSD d PLAX 1.00 cm M: 0.6-1.2 LV Vol A2C d MOD 79.3 mL LVPW d PLAX 1.00 cm M: 0.6 - 1.2 LV Vol A4C d MOD 125.2 mL LVID d PLAX 4.59 cm M: 4.2 - 5.8 LA vol/ BSA A2C s A-L 29.2 mL/m2 LVDs 3.50 cm M: 2.5 - 4.0 LA vol/ BSA A4C s A-L 25.7 mL/m2 Ao Root d 3.04 cm M: 3.1 - 3.7 LA Vol/ BSA Biplane s A-L 28.3 mL/m2 RA Area A4C 11.58 cm2 LA Area A4C s MOD 19.10 cm2 RA Vol/ BSA A4C s A-L 11.0 mL/m2 LA Area A2C s MOD 21.00 cm2 Ao Asc Diam d 3.76 cm M: 2.6 - 3.4 LV EF A4C MOD 50.4 % LV EF Teichholz 46.5 % LV EF A2C MOD 50.4 % LVEF (Seo's) 52.96 % M: 52 - 72 LV EF Biplane MOD 53.0 % LV Volume 78.01 mL M: 62 - 150 SV 55.71 mL LV Volume Index 37.68 mL/m2 M: 34 - 74 SV Index 26.92 mL/m2 LV Vol Biplane MOD 105.2 mL FS 23.15 % M-Mode TAPSE 2.12 cm (M/F) >1.7 LV Diastology MV E' medial 0.054 (>0.07 m/s) E/A Ratio 0.6 LV E/e MED 8.05 (<14) MV E Vmax 0.44 (0.4-1.3 m/s) MV E' lateral 0.129 (>0.1 m/s) MV A Vmax 0.70 (0.4-1.3 m/s) LV E/e LAT 3.35 (<14) MV E/A Ratio 0.58 MV E/E' medial 8.09 MV E/E' lateral 3.37 Aortic Valve LVOT Area 4.01 cm2 AoV Area Vmax 2.46 cm2 LVOT Vmax 0.95 m/s AoV Area/ BSA (Vmax) 1.19 cm2/m2 LVOT Mean Brody. 0.62 m/s EMILY Mean Brody. 2.24 cm2 LVOT Peak Grad 3.6 mmHg EMILY Mean Brody. Index 1.08 cm2/m2 LVOT Mean Grad 1.8 mmHg LVOT VTI 0.166 m LVOT Diam s 2.25 cm AoV Vmax 1.55 m/s Velocity Ratio 0.61 AoV Mean Brody. 1.11 m/s AoV Peak Grad 9.6 mmHg LVOT SV 66.45 mL AoV Mean Grad 5.5 mmHg AoV VTI 0.256 m AoV Area VTI 2.59 cm2 AoV Area/ BSA (VTI) 1.25 cm/m2 Mitral Valve MV DT 278 (160-240 msec) MV PHT 81 msec MV Area PHT 2.73 cm2 MV VTI 0.148 m MV VTI Annulus 0.150 m MV Area VTI 4.52 (4.0-6.0 cm2) Pulmonary Valve PV Vmax 1.19 (0.5-1.5 m/s) RVOT Peak Gr. 1.35 mmHg PV Peak Grad 5.6 mmHg RVOT Mean Gr. 0.75 mmHg PV Mean Grad 2.9 mmHg RVOT VTI 0.112 m PV VTI 0.249 m RVOT Vmax 0.58 m/s
[2021-01-04] MEDS: Lactulose 20 GM/30 ML CUP PO ×2 (02:12→05:52)
[2021-01-04 07:02] LABS: Abs Immature Grans 0.01 10^3/uL (0.0-0.06); Absolute Basophil Count 0.03 10^3/uL (0.0-0.2); Absolute Eosinophil Count 0.28 10^3/uL (0.0-0.7); Absolute Lymphocyte Count 1.23 10^3/uL (1.2-3.4); Absolute Monocyte Count 0.65 10^3/uL (0.1-0.8); Absolute Neutrophil Count 3.83 10^3/uL (1.2-6.7); Basophils % 0.5; Eosinophils % 4.6; HCT 42.4 % (40.0-50.0); HGB 14.6 g/dL (13.5-17.5); Immature Grans % 0.2; Lymphocytes % 20.4; MCH 32.4 pg (27.0-33.0); MCHC 34.4 % (32.0-36.0); MCV 94.2 fL (80-95); Monocytes % 10.8; Neutrophils % 63.5; Nucleated RBC 0 %; Platelet Count 111 10^3/uL (130-400); RDW 14.3 % (11.8-14.1); RDW-SD 49.5 fL; WBC 6.03 10^3/uL (4.4-10.8)
[2021-01-04 07:10] LABS: Ammonia 94 umol/L (11-32)
[2021-01-04 07:29] LABS: Anion Gap 8.2 mmol/L (3-11); BUN 25 mg/dL (7-18); CO2 27.8 mmol/L (21.0-32.0); CREATININE 1.2 mg/dL (0.70-1.30); Calcium 9.5 mg/dL (8.5-10.1); Chloride 98 mmol/L (98-107); Ferritin 155 ng/mL (26-388); Glucose 356 mg/dL (74-106); Potassium 4.2 mmol/L (3.5-5.1); Sodium 134 mmol/L (136-145)
[2021-01-04 07:35] LABS: Iron 120 ug/dL (65-175); Total Iron Binding Capacity 219 ug/dL (250-450); Transferrin Sat 55 % (20-55)
[2021-01-04 07:41] LABS: Vitamin B12 1664 pg/mL (193-986)
[2021-01-04 07:44] LABS: Folate > 20.0 ng/mL (8.6-20.0)
[2021-01-04] MEDS: Spironolactone 50 MG TAB 100 MG PO (08:23)
[2021-01-04] MEDS: busPIRone 15 MG TAB PO ×2 (08:24→20:42)
[2021-01-04] MEDS: Senna TAB 1 TAB PO ×2 (08:24→20:41)
[2021-01-04] MEDS: Propranolol 20 MG TAB PO ×2 (08:24→20:39)
[2021-01-04] MEDS: Docusate Sodium 100 MG CAP PO ×2 (08:25→20:38)
[2021-01-04] MEDS: Zonisamide 25 MG CAP 75 MG PO ×2 (08:25→20:41)
[2021-01-04] MEDS: Venlafaxine 37.5 MG CAPCR 75 MG PO (08:25)
[2021-01-04] MEDS: Furosemide 40 MG TAB PO (08:25)
[2021-01-04] MEDS: Famotidine 20 MG TAB 10 MG PO (08:26)
[2021-01-04] MEDS: Multivitamin TAB 1 TAB PO (08:26)
[2021-01-04] MEDS: Rifaximin 550 MG TAB PO ×2 (08:26→20:40)
[2021-01-04] MEDS: Omeprazole 20 MG CAPCR PO ×2 (08:26→20:39)
[2021-01-04] MEDS: traMADol 50 MG TAB PO ×2 (08:27→20:41)
[2021-01-04] MEDS: Ferrous Sulfate 325 MG TAB PO (08:27)
[2021-01-04] MEDS: Insulin Aspart 300 UNITS/3 ML PEN SC ×4 (08:27→21:42)
[2021-01-04] MEDS: Nystatin OINT 15 GM TUBE TP ×2 (08:29→20:43)
[2021-01-04] MEDS: Lactulose 20 GM/30 ML CUP 30 GM PO ×6 (11:24→18:25)
[2021-01-04] MEDS: Insulin Aspart 300 UNITS/3 ML PEN 10 UNITS SC ×2 (12:21→17:14)
--- NOTE | 2021-01-04 12:50 | W.INDIABCONS ---
Date of service: 01/04/21 Time of Service: 12:51 Diabetes Inpatient Consult DESCRIPTION/ASSESSMENT: 65 year old male admitted with hepatic encephalopathy with elevated ammonia levels. Had paracentesis last week at [facility]. PMH: ETOH abuse, DM, obesity, esphageal varices and liver cirrohsis. Most recent A1C: 11.1%. Home meds include 30 u lantus and 10 u novolog at meals. DM poorly controllled. Currently lives in assisted living, may need SNF placement at D/C. Following low sodium, diabetic diet with excellent intake (>75% of meals) INTERVENTION: Diabetes education not warranted at this time due to cognitive impairment with current encephalopathy. PLAN: continue current meal plan, will continue to monitor po intake, labs and weight Time Spent in Nutritional Counseling and Treatment: 5
--- NOTE | 2021-01-04 13:07 | PGE_ITS ---
Date of Service Date of service: 01/04/21 Time of Service: 13:07 Assessment and Plan Assessment and plan (1) Hepatic encephalopathy: Status: Acute Assessment and plan: Worse today. Increase frequency of lactulose. Target 3 liquid BMs per day. Continue rifaxamin. (2) Diabetes type 2, uncontrolled: Status: Chronic Assessment and plan: ?Untreated as outpatient. A1C 11.1. Continue to up-titrate both long acting and prandial insulin. (3) Cirrhosis of liver without ascites: Status: Chronic Assessment and plan: Multifactorial, due to Hepatitis C and h/o EtOH abuse in remission. We have limited tylenol to 2 grams/day. Due to h/o esophageal varices and thrombocytopenia, the patient should never be on NSAIDS and his chemical DVT ppx is held. Continue propranolol. Aldactone dose increased. (4) Thrombocytopenia: Status: Chronic Assessment and plan: As above B12/folate appropriate. Plts slightly better today. COntinue to abstain from NSAIDS and chemical dvt ppx due to h/o esophageal varices. (5) Anemia: Status: Chronic Assessment and plan: Hemoccult negative. Irone studies, B12, and folate are wnl. On iron repletion as outpatient (QOD), which we will continue. H/H stable. (6) Esophageal varices in cirrhosis: Status: Chronic Assessment and plan: Continue beta prateek, PPI. No NSAIDs or chemical DVT Ppx (7) Hypomagnesemia: Status: Resolved Assessment and plan: Recheck in am (8) Left bundle branch block: Status: Chronic Assessment and plan: [facility], but perhaps he was already in LBBB. These are not available for my review. Echo without wall motion abnormalities, EF 50%. No ACS on this admission, but will need outpatient stress test. (9) DVT prophylaxis: Status: Acute Assessment and plan: TEDs/SCDS. No chemical DVT ppx in setting of known esophageal varices as well as thrombocytopenia (10) Discharge planning issues: Status: Acute Assessment and plan: Full code Palliative care consulted PT consulted I question if it's not more appropriate for the patient to reside at a [facility]iary level. Will discuss with care management. Subjective Subjective Interval history since last seen: I don't feel well today. I have no energy. Denies dizziness, chest pain or pain anywhere, shortness of breath, nausea. BGs in 300s today rather than 400s. More confused and slower to respond today than yesterday. Only 1 liquid BM so far. SR LBBB on tele. Exam Narrative Exam Narrative: General: obese middle-aged male, A&Ox3, but much slower to respond today. Sitting up in bed, no asterexis. Psoriatic plaques seen in various places. HEENT: EOMI, MMM Heart: RRR, no m/r/g Lungs: Diminished breath sounds B Abdomen: soft, obese, nontender, no ascites Extremities: s/p L AKA; RLE without edema, clubbing, cyanosis. Objective Last Vital Signs Temp 36.2 C L 01/04/21 11:18 Pulse 83 01/04/21 11:18 Resp 20 01/04/21 11:18 BP 119/78 01/04/21 11:18 Pulse Ox 95 01/04/21 11:18 Laboratory Results - last 24 hr 01/04/21 01/04/21 01/04/21 06:50 06:50 06:50 WBC 6.03 RBC 4.50 Hgb 14.6 Hct 42.4 MCV 94.2 MCH 32.4 MCHC 34.4 RDW 14.3 H Plt Count 111 L MPV 11.0 Immature Gran % 0.2 Neutrophils % 63.5 Lymphocytes % 20.4 Monocytes % 10.8 Eosinophils % 4.6 Basophils % 0.5 Nucleated RBC % 0 Absolute Neutrophils 3.83 Absolute Lymphocytes 1.23 Absolute Monocytes 0.65 Absolute Eosinophils 0.28 Absolute Basophils 0.03 Sodium 134 L Potassium 4.2 Chloride 98 Carbon Dioxide 27.8 Anion Gap 8.2 BUN 25 H Creatinine 1.2 Estimated GFR/1.73 m2 >= 60.00 Glucose 356 H Calcium 9.5 Magnesium 2.0 Iron TIBC Transferrin % Sat Ferritin 155 Ammonia 94 H Vitamin B12 Folate 01/04/21 01/04/21 06:50 06:50 WBC RBC Hgb Hct MCV MCH MCHC RDW Plt Count MPV Immature Gran % Neutrophils % Lymphocytes % Monocytes % Eosinophils % Basophils % Nucleated RBC % Absolute Neutrophils Absolute Lymphocytes Absolute Monocytes Absolute Eosinophils Absolute Basophils Sodium Potassium Chloride Carbon Dioxide Anion Gap BUN Creatinine Estimated GFR/1.73 m2 Glucose Calcium Magnesium Iron 120 TIBC 219 L Transferrin % Sat 55 Ferritin Ammonia Vitamin B12 1664 H Folate > 20.0 H Objective Narrative Objective Narrative: Echo: Echo: Left Ventricle : The left ventricle is normal size. Left ventricular systolic function is borderline. There is normal left ventricular wall thickness. There is normal LV segmental wall motion. The left ventricular diastolic function is normal. LVEF is 50%. Right Ventricle : Right ventricle is grossly normal in size. Right ventricular systolic function is grossly normal. Atria : The left atrium size is normal. The right atrium size is normal. Valves: There are no hemodynamically significant valvular lesions. Great Vessels : The aortic root is normal in size. The ascending aorta is mildly dilated. The IVC was not visualized. Please see remainder of study for further details.
--- NOTE | 2021-01-04 16:02 | PTTR_ITS ---
Date of service: 01/04/21 Time of Service: 14:20 PT Notes Visit Reasons: HEPATIC ENCEPHALOPATHY Inpatient Physical Therapy Treatment Note [facility] Date: 01/04/2021 PRECAUTIONS: Fall SUBJECTIVE: Perez is pleasant and agreeable to participating in PT. He reports that he is feeling tired today. He hopes that he will soon return to the [facility] and get fitted for a prosthetic leg. OBJECTIVE: PAIN: No c/o pain BED MOBILITY/TRANSFERS Rolling L/R: I Supine-sit: I Sit-supine: I Sit-stand: SBA Stand-sit: SBA Bed-Chair: SBA Chair-bed: SBA GAIT Assistive Device: FWW Weight bearing: Full R Assist: SBA Distance: 80' THEREX: Patient was instructed in a resisted LE strengthening program, performed while seated at edge of bed, as per flow sheet. He tolerated a progression in his ther ex program, tolerating the addition of R ankle weight. ASSESSMENT: Patient tolerated session well, tolerating a progression in gait distance as well as with ther ex, tolerating the addition of resistance. He would benefit from continued gait training and global strengthening for improved mobility and activity tolerance. PLAN: Continue with global strengthening and gait training TREATMENT CODE/TIME: 30 minutes; 16330, 29328 (14:20)
--- NOTE | 2021-01-04 16:35 | CMPROGNOTE_ITS ---
Care Management Progress Note S/O: Perez was sitting up in bed when CM met with him. He was very alert and appeared much less confused that what was reported yesterday. Perez reviewed his previous placements and reported he has been to many rehabs. He shared concerns around having a payer source for placement. He is agreeable to a referral being sent to [facility]. CM spoke with Chasidy Vigil at the [facility] who reviewed Manuel social work notes. Notably; he has applied for LTM but was denied for assets and is currently in a spend down. He was placed at [facility] in [place] from [facility] and then to [place] from [facility] three weeks ago. He participated in a MD visit with [facility] with Lara Diaz to order DM meds recently. He is not DEVANTE eligible. He has worked closely with Masha Maier MSW at [facility]. He is paying $2300 out of pocket at the [facility]. He is working towards progressing from W/C to ambulating with protesis as a goal. Chasidy reports he was very independent at baseline prior to surgery and has previously worked with [facility] and [facility] in [place]. He is 50% service connected, 70% service connection required for halfway SNF payment. Chasidy reports there are exceptions (CM to clarify with MAIL CLERK BILLS) but unlikely Perez will qualify. Chasidy reports DM meds were either not ordered from [place] from [facility] to [facility] or [facility] to [place]. Perez's most recent A1C is now at 11.1% Chasidy reports previously at 6%. CM continues to follow. A: Perez is a 65 year old man admitted on 01/02/21 with hepatic encephalopathy P: Perez will return to [facility] when ready per MD. He will follow up with his PCP and plan of care as prescribed. He will transport via private vehicle with his brother, Rich. CM will follow up with the [facility] re:medications (see above) and continue to support Perez and his discharge needs.
--- NOTE | 2021-01-04 16:35 | PDOC.CMPRO ---
Care Management Progress Note S/O: Perez was sitting up in bed when CM met with him. He was very alert and appeared much less confused that what was reported yesterday. Perez reviewed his previous placements and reported he has been to many rehabs. He shared concerns around having a payer source for placement. He is agreeable to a referral being sent to [facility]. CM spoke with Chasidy Vigil at the [facility] who reviewed [facility] social work notes. Notably; he has applied for LTM but was denied for assets and is currently in a spend down. He was placed at [facility] in [place] from [facility] and then to [place] from [facility] three weeks ago. He participated in a MD visit with [facility] with Lara Diaz to order DM meds recently. He is not DEVANTE eligible. He has worked closely with Masha Maier MSW at [facility]. He is paying $2300 out of pocket at the [facility]. He is working towards progressing from W/C to ambulating with protesis as a goal. Chasidy reports he was very independent at baseline prior to surgery and has previously worked with [facility] and [facility] in [place]. He is 50% service connected, 70% service connection required for half-way SNF payment. Chasidy reports there are exceptions (CM to clarify with [employer]) but unlikely Perez will qualify. Chasidy reports DM meds were either not ordered from [place] from [facility] to [facility] or [facility] to [place]. Perez's most recent A1C is now at 11.1% Chasidy reports previously at 6%. CM continues to follow. A: Perez is a 65 year old man admitted on 01/02/21 with hepatic encephalopathy P: Perez will return to [facility] when ready per MD. He will follow up with his PCP and plan of care as prescribed. He will transport via private vehicle with his brother, Rich. CM will follow up with the [facility] re:medications (see above) and continue to support Perez and his discharge needs.
[2021-01-04] MEDS: Ondansetron 4 MG TAB PO (17:51)
[2021-01-04] MEDS: Normal Saline Flush 10 ML SYR IVP (20:42)
[2021-01-04] MEDS: traZODone 50 MG TAB PO (21:40)
[2021-01-04] MEDS: Insulin Glargine 300 UNITS/3 ML PEN 30 UNITS SC (21:43)
[2021-01-05] MEDS: Melatonin 3 MG TAB PO (01:29)
[2021-01-05 03:10] VITALS: BP 127/83; PULSE 79; RESP 17; TEMP 37.4; O2SAT 96
[2021-01-05] MEDS: Ondansetron 4 MG TAB PO (04:06)
[2021-01-05] MEDS: Mylanta Suspension 30 ML CUP PO (06:16)
[2021-01-05 06:45] LABS: BUN 21 mg/dL (7-18); CREATININE 1.1 mg/dL (0.70-1.30); Calcium 9.2 mg/dL (8.5-10.1); Chloride 97 mmol/L (98-107); Glucose 270 mg/dL (74-106); Magnesium 1.7 mg/dL (1.8-2.4); Sodium 131 mmol/L (136-145)
[2021-01-05 06:47] LABS: Ammonia 136 umol/L (11-32)
[2021-01-05 07:14] VITALS: PULSE 86
[2021-01-05 07:27] VITALS: BP 121/78; PULSE 85; RESP 16; TEMP 36.5; O2SAT 95
[2021-01-05] MEDS: Omeprazole 20 MG CAPCR PO (07:53)
[2021-01-05] MEDS: Insulin Aspart 300 UNITS/3 ML PEN SC ×2 (08:39→12:23)
[2021-01-05] MEDS: Insulin Aspart 300 UNITS/3 ML PEN 10 UNITS SC (08:43)
[2021-01-05] MEDS: Normal Saline 500 ML 30 ML IV (08:53)
[2021-01-05] MEDS: MAGNESIUM SULFATE 2 GM/50 ML BAG IVPB (08:54)
[2021-01-05] MEDS: Famotidine 20 MG TAB 10 MG PO (08:54)
[2021-01-05] MEDS: Spironolactone 50 MG TAB 100 MG PO (08:55)
[2021-01-05] MEDS: Zonisamide 25 MG CAP 75 MG PO (08:55)
[2021-01-05] MEDS: busPIRone 15 MG TAB PO (08:56)
[2021-01-05] MEDS: Propranolol 20 MG TAB PO (08:56)
[2021-01-05] MEDS: traMADol 50 MG TAB PO (08:56)
[2021-01-05] MEDS: Multivitamin TAB 1 TAB PO (08:56)
[2021-01-05] MEDS: Furosemide 40 MG TAB PO (08:57)
[2021-01-05] MEDS: Docusate Sodium 100 MG CAP PO (08:57)
[2021-01-05] MEDS: Senna TAB 1 TAB PO (08:57)
[2021-01-05] MEDS: Venlafaxine 37.5 MG CAPCR 75 MG PO (08:57)
[2021-01-05] MEDS: Nystatin OINT 15 GM TUBE TP (08:58)
--- NOTE | 2021-01-05 09:01 | CMPROGNOTE_ITS ---
Care Management Progress Note S/O: Perez was sitting up in bed when CM met with him. He was agreeable to a referral being sent to [facility], which was completed. CM continues to follow. A: Perez is a 65 year old man admitted on 01/02/21 with hepatic encephalopathy P: Undetermined if Perez will return to [facility] when ready per MD; dependent on progress and level of functioning. Awaiting further information from [facility] PUBLIC SERVICE DIRECTOR Masha Maier re: LTM status. CM continues to follow.
[2021-01-05] MEDS: Normal Saline Flush 10 ML SYR IVP (09:03)
[2021-01-05] MEDS: Rifaximin 550 MG TAB PO (09:44)
[2021-01-05] MEDS: Lactulose 20 GM/30 ML CUP 30 GM PO (10:26)
[2021-01-05 11:10] VITALS: BP 126/86; PULSE 80; RESP 19; TEMP 36.5; O2SAT 94
--- NOTE | 2021-01-05 11:32 | PDOC.CMDIS ---
LACE Index Scoring Tool - Questions: Length of Stay (in days): 2 Acuity (Admit via E.D.?): Yes Comorbidities: Diabetes w/o Complication, Liver or Renal Disease E.D. Visits: 1 - Answers: Total Score: 11 Risk of Readmission: High Risk Care Management Discharge Reason for Hospitalization: Hepatic Encephalopathy Discharge Plan: Perez will return to [facility] when ready per MD. CM facilitated MD-PCP (Tammie Woodward) contact to review med orders and [facility]. CM also Patient/Family Education Needs: Review discharge instructions, discuss Ask Me Three. Services Needed at Discharge: Homemaking Services (Return to [facility] )
--- NOTE | 2021-01-05 11:48 | W.PM.DS.N ---
Date of service: 01/05/21 Time of Service: 11:48 DS: Diagnosis Discharge Diagnosis (1) Hepatic encephalopathy: Status: Acute (2) Diabetes type 2, uncontrolled: Status: Chronic (3) Cirrhosis of liver without ascites: Status: Chronic (4) Thrombocytopenia: Status: Chronic (5) Anemia: Status: Chronic Asessment and Plan: of chronic disease (6) Esophageal varices in cirrhosis: Status: Chronic (7) Hypomagnesemia: Status: Resolved (8) Left bundle branch block: Status: Chronic (9) COVID-19 ruled out by laboratory testing: Status: Ruled-out Discharge Plan Disposition Patient Disposition: [facility] Condition: Serious Discharge Details Reason For Visit: HEPATIC ENCEPHALOPATHY Admit Date/Time: 01/03/21 08:05 Admit Provider: Ousmane Friedman Attending Provider: Ousmane Friedman Primary Care Provider: Tammie Woodward [facility] Course Hospital Course: Mr Newton is a 65 year old male with PMHx of cirrhosis due to Hepatitic C and history of EtOH abuse, in remission, as well as h/o hepatic encephalopathy, esophageal varices, and untreated DM2, who recently became a resident of [facility], who was admitted to [facility] hospitalist service on 01/02/21 having presented with hepatic encephalopathy. The patient was adherent to his medication regimen, but had become constipated and was not having 3 liquid BMs daily as he was supposed to. While admitted, we intensified his bowel regimen, including increasing dose and frequency of lactulose, with resolution of constipation and return of normal mental status. He was maintained on rifaxamin. The patient's medications were reviewed and adjusted: his acetaminophen max dose daily is 2 grams, his aldactone dose was increased to 100 mg daily, and his ibuprofen was discontinued due to h/o esophageal varices as well thrombocytopenia. Additionally, his A1C is 11.1 and BGs have been in 400s. He is being discharged to [facility] with new insulin prescriptions. If his mental status worsens, prn lactulose should be administered. If this does not improve mental status, he should be brought back to the ED and permanent placement to a SNF should be considered. The insulin dosing will need to be followed by the PCP as the patient has not yet reached target glucose levels. The patient is returning to [facility] today with 2 days worth of medications supplies by our facility and [facility]. Based on his old LBBB on EKG, the patient should undergo an outpatient MPI stress test - PCP to arrange. This is nonurgent. Care for patient as well as completion of his discharge summary took 1 hr on the day of discharge. Home Meds and New Rx's Prescriptions: New spironolactone 50 mg Tablet 100 mg PO DAILY Qty: 30 RF: 0 insulin aspart U-100 [Novolog Flexpen U-100 Insulin] 100 unit/mL (3 mL) Insulin Pen 12 unit subcut 0800,1200,1700 Qty: 15 RF: 0 Lantus Solostar U-100 Insulin 100 unit/mL (3 mL) Insulin Pen 36 unit subcut HS Qty: 15 RF: 0 lactulose 20 gram/30 mL solution 30 g PO Q2H PRN PRN (Reason: constipation) Qty: 1500 RF: 0 (DME) blood-glucose meter Misc See Rx Instructions .ROUTE .MEDSUPPLY Qty: 1 RF: 0 (DME) Advanced Gluc Meter Test Strip Strip See Rx Instructions .ROUTE .MEDSUPPLY Qty: 100 RF: 0 Continued multivitamin Tablet 1 tab PO DAILY RF: 0 furosemide 40 mg Tablet 40 mg PO DAILY RF: 0 venlafaxine 75 mg Capsule,Extended Release 24hr 75 mg PO DAILY RF: 0 famotidine 10 mg Tablet 10 mg PO DAILY RF: 0 trazodone 50 mg Tablet 50 mg PO HS RF: 0 nystatin 100,000 unit/gram Ointment 1 applic TOPICAL BID RF: 0 ondansetron HCl [Zofran] 4 mg Tablet 4 mg PO Q6H PRNRF: 0 melatonin 3 mg Tablet 3 mg PO HS PRNRF: 0 tramadol 50 mg Tablet 50 mg PO BID RF: 0 ferrous sulfate 325 mg (65 mg iron) Tablet 325 mg PO Q OTHER DAY RF: 0 docusate sodium [Colace] 100 mg Capsule 100 mg PO BID RF: 0 omeprazole 20 mg Capsule,Delayed Release(Dr/Ec) 20 mg PO BID RF: 0 polyethylene glycol 3350 [Miralax] 17 gram/dose Powder 17 g PO BID RF: 0 propranolol 20 mg Tablet 20 mg PO BID RF: 0 vitamin B complex Capsule 1 cap PO DAILY RF: 0 buspirone 15 mg Tablet 15 mg PO BID RF: 0 zonisamide 25 mg Capsule 75 mg PO BID RF: 0 Xifaxan 550 mg Tablet 550 mg PO BID RF: 0 acetaminophen [Tylenol] 325 mg Tablet 650 mg PO Q6H PRNQty: 60 RF: 0 Changed sennosides [senna] 8.6 mg Tablet 8.6 mg PO BID Qty: 60 RF: 0 lactulose 10 gram/15 mL (15 mL) Solution 30 g PO QID Qty: 4000 RF: 0 Discontinued spironolactone 25 mg Tablet 25 mg PO DAILY RF: 0 ibuprofen 200 mg Tablet 600 mg PO Q6H RF: 0 Discharge Instructions Instructions: Insulin Aspart, Recombinant (By injection), Insulin Glargine (By injection), Hepatic Encephalopathy (DC) Additional Instructions: Return to the hospital with any fever, bleeding chest pain, shortness of breath, worsening mental status. Target: 3 liquid BM's/day. Accuchecks AC & HS. Bloodwork (BMP, magnesium) on 01/07/2021; results to PCP. Stand Alone Forms: Nursing Discharge Form Referrals: Tammie Woodward [Primary Care Provider] - 01/12/21 11:00 am Activity:: Activity as Tolerated Equipment/Supplies:: No Equipment Needed Diet:: consistent carb low sodium Discharge Orders Discharge Orders: Discharge Order (Routine); Ordered 01/05/21 Ordered By: Rina Nails Other Ambulatory Orders: Basic Metabolic Panel (Routine) Timeframe: 20210107 Location: Determined by Patient Ordered By: Rina Nails Magnesium (Routine) Timeframe: 20210107 Location: Determined by Patient Ordered By: Rina Nails DS: Summary Time Spent with Patient providing and/or coordinating discharge services: Greater than 30 minutes Status at Discharge Functional status at discharge: uses cane/walker Overall status at discharge: patient is back to baseline Mental Status: mental status grossly normal Speech and Movement: speech and movement normal Mood: congruent mood Affect: normal affect Exam Narrative Exam Narrative: General: obese middle-aged male, A&Ox3, very alert and sharp with answers; seen ambulating with a walker in the hallway with PT. HEENT: EOMI, MMM Heart: RRR, no m/r/g Lungs: Diminished breath sounds B Abdomen: soft, obese, nontender, no ascites Extremities: s/p L AKA; RLE without edema, clubbing, cyanosis. Psych Mental Status: mental status grossly normal Speech and Movement: speech and movement normal Mood: congruent mood Affect: normal affect DS: Data Vitals/I&O Vitals and I&O: Vital Signs Temperature 36.5 C 01/05/21 11:10 Temperature Source Tympanic 01/05/21 11:10 Pulse 80 01/05/21 11:10 Pulse Rhythm Regular 01/05/21 07:29 Pulse 92 H 01/02/21 05:52 Respiratory Rate 19 01/05/21 11:10 Respiratory Effort 01/05/21 07:29 Respiratory Depth Normal 01/05/21 07:29 Respiratory Pattern Normal 01/05/21 07:29 Blood Pressure 126/86 01/05/21 11:10 Blood Pressure Mean 88 01/02/21 05:24 Blood Pressure Position Sitting 01/02/21 03:23 Pulse Oximetry 94 01/05/21 11:10 Oxygen Delivery Method Room Air 01/05/21 11:10 Oxygen Flow Rate 0 01/05/21 11:10 Pain Level 0 01/05/21 11:10 Comment 01/02/21 03:23 Intake & Output 01/04/21 01/04/21 01/05/21 11:59 23:59 11:59 Intake Total 900 / 1150 250 / 1150 240 / 240 Output Total 350 / 350 1550 / 1550 Balance 550 / 800 250 / 800 -1310 / -1310 Weight 93.6 kg 94 kg Intake: IV 510 / 520 10 / 520 Oral 390 / 630 240 / 630 240 / 240 Output: Urine 350 / 350 900 / 900 Stool 650 / 650 Other: Urine Color Light Kendal Yellow Light Kendal Urine Appearance Clear Clear Clear Urine Odor Normal None Comment voided into toilet Stool Occult Blood Negative Negative Negative Stool Size Moderate Moderate Small Stool Characteristics Liquid Soft Liquid Liquid Brown Voiding Methods Urinal Toilet Urinal Data Completed and Pending Completed studies during hospitalization [Text1]: CT head w/o contrast: There is periventricular hypodensity consistent with chronic small vessel disease, most prominent in the left parietal region. Echo; This is a technically limited study. Left Ventricle : The left ventricle is normal size. Left ventricular systolic function is borderline. There is normal left ventricular wall thickness. There is normal LV segmental wall motion. The left ventricular diastolic function is normal. LVEF is 50%. Right Ventricle : Right ventricle is grossly normal in size. Right ventricular systolic function is grossly normal. Atria : The left atrium size is normal. The right atrium size is normal. Valves: There are no hemodynamically significant valvular lesions. Great Vessels : The aortic root is normal in size. The ascending aorta is mildly dilated. The IVC was not visualized. Please see remainder of study for further details. Labs on day of discharge: Labs from last 24 hours 01/05/21 01/05/21 06:20 06:20 Sodium 131 L Potassium 4.0 Chloride 97 L Carbon Dioxide 26.0 Anion Gap 8.0 BUN 21 H Creatinine 1.1 Estimated GFR/1.73 m2 >= 60.00 Glucose 270 H Calcium 9.2 Magnesium 1.7 L Ammonia 136 H [facility] Medical History (Updated 01/05/21 @ 11:50 by Rina Nails MD) Acute pain of both shoulders Alcohol abuse, in remission Alcoholic cirrhosis of liver with ascites Anemia combination of hemolysis, iron deficiency, anemia of chronic disease, blood loss. 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 Obesity Old lacunar stroke without late effect right frontal and left parietal lobe lacunar infarcts on MRI brain from 04/2020 Psoriasis Psoriatic arthritis Squamous cell carcinoma Streptococcal sepsis with septic left knee Surgical History (Updated 01/02/21 @ 13:21 by Rina Nails MD) History of arthroplasty of left knee requiring explantation due to septic left knee S/P AKA (above knee amputation) unilateral Due to multiple infections in left knee prosthesis Social History (Updated 01/02/21 @ 13:30 by Rina Nails MD) Smoking/Tobacco Use Status: Never Smoking risk assessment performed?: Yes Alcohol Intake: former Substance use type: former substance user and crack/cocaine Do you feel safe at home: Yes
[2021-01-05] MEDS: Insulin Aspart 300 UNITS/3 ML PEN 12 UNITS SC (12:23)
--- NOTE | 2021-01-05 12:31 | PT.INTREAT ---
Date of service: 01/05/21 Time of Service: 10:35 PT Notes Visit Reasons: HEPATIC ENCEPHALOPATHY Inpatient Physical Therapy Treatment Note [facility] Date: 01/05/2021 PRECAUTIONS: Fall SUBJECTIVE: Perez is pleasant and agreeable to participating in PT. He is insistent on seeing the doctor today, as he would like updates on his medical condition because I'm paying for two places at once. OBJECTIVE: PAIN: No c/o pain BED MOBILITY/TRANSFERS Rolling L/R: Supine-sit: I Sit-supine: Sit-stand: S Stand-sit: S Bed-Chair: Chair-bed: GAIT Assistive Device: FWW Weight bearing: Full R Assist: SBA-S Distance: 80' THEREX: Patient was instructed in a resisted LE strengthening program, performed in a seated position, as per flow sheet. He tolerated a progression in his ther ex program, tolerating increased reps. ASSESSMENT: Patient tolerated session well, tolerating a progression in his ther ex program, tolerating increased reps. He would benefit from continued gait training and global strengthening for improved mobility and activity tolerance. PLAN: Continue with global strengthening and gait training TREATMENT CODE/TIME: 25 minutes; 37771, 78970 (10:35)
--- NOTE | 2021-01-05 18:30 | PT.INDS ---
Date of service: 01/05/21 PT Notes Visit Reasons: HEPATIC ENCEPHALOPATHY Physical Therapy Inpatient Discharge Summary Date: 01/05/2021 Dates of service: 01/02/2021 through 01/05/2021 This is a clinical summary of care provided on the duration of dates listed above. No charge was made in the completion of this documentation. Referring Doctor: Ousmane Friedman PT Orders: PT CONSULT: Limited ability, eval and treat Precautions: Fall risk, standard Patient Profile/Admitting Diagnosis: Patient presented to ER via EMS with symptoms of nausea, vomiting and hallucinations with remarkable change in altered mental status as observed by staff members at [place] in, where he resides. He was admitted for management of hepatic encephalopathy, alcoholic psoriasis, and hyperglycemia in the presence of a left above-knee amputation. PMHX: Medical History (Updated 01/02/21 @ 10:13 by Ousmane Friedman) Alcoholic cirrhosis of liver with ascites Diabetes type 2, uncontrolled History of left above knee amputation Hypertension Surgical History (Updated 01/02/21 @ 06:09 by Ousmane Friedman) S/P AKA (above knee amputation) unilateral Social History/Home Situation: Resides at [place] in an assisted living facility. States that he does not have a left lower extremity prosthetic, as the [facility] will not pay for it for him. Current Functional Limitations: Unable to ambulate, essentially wheelchair-bound. Able to complete bed to chair, and vice versa, transfers with and without use of walker. Equipment Owned/DME: WC. Unable to clearly communicate otherwise. Subjective: NT. See most recent RULING MACHINE SET UP OPERATOR notes. Objective: General Observation: NT. See most recent RULING MACHINE SET UP OPERATOR notes. Pain: NT. See most recent RULING MACHINE SET UP OPERATOR notes. Vital Signs: NT. See most recent RULING MACHINE SET UP OPERATOR notes. ROM: Right Upper Extremity: Grossly WNL Left Upper Extremity: Grossly WNL Right Lower Extremity: Grossly WNL Left Lower Extremity: Left hip is grossly WNL, above-knee amputee. Strength: Right Upper Extremity: Grossly 5/5 Left Upper Extremity: Grossly 5/5 Right Lower Extremity: Grossly 5/5 Left Lower Extremity: Left hip flexion 5/5 Sensation: Intact Bed Mobility/Transfers: Bed mobility independent Supine to sit independent Sit to stand supervision Stand to sit supervision Gait: Guided patient through level surface ambulation of up to 80 feet using front wheeled walker with full weight bearing on the right LE requiring standby assist. Balance: Static Sitting: Normal Dynamic Sitting: Normal Static Standing: Fair Dynamic Standing: Fair Assessment: Patient continues to present with clinical signs and symptoms consistent with limited ability due to above diagnosis, and require skilled PT intervention to maintain functional level, to return safely to [facility]. Goals: Goals X1 week 1. Supine-Sit independent MET 2. Sit-Supine independent MET 3. Sit-Stand independent MET 4. Stand-Sit independent NOT MET 5. Bed-Chair independent NOT MET 6. Chair-Bed independent NOT MET DISCHARGE RECOMMENDATIONS: Return to [facility] when medically stable TREATMENT CODE/TIME: NC Thank you for the opportunity to participate in the care of this patient. Jenni Iyer PT, DPT, CLT [facility] [place], [place]
--- NOTE | 2021-01-06 14:02 | CMPROGNOTE_ITS ---
Care Management Progress Note CM rec'd call from NINA Delacruz at the [place] P# [phone] Portillo at the [facility] is most likely the PCP that will follow Perez in the community. She stated at the last [place] appointment scheduled through the [facility] the decision was made for Perez to continue to access services through [facility]. She reported uncertainty that Dr. Portillo may not be willing to order medications and prescriptions. She directed this advertising copywriter to re- fax prescriptions to [facility] [employer] F#[phone]. CM faxed prescriptions attn: Dr. Portillo.
--- NOTE | 2021-01-06 14:02 | PDOC.CMPRO ---
Care Management Progress Note CM rec'd call from NINA Delacruz at the [place] P# [phone] Portillo at the [facility] is most likely the PCP that will follow Perez in the community. She stated at the last [place] appointment scheduled through the [place] [facility] the decision was made for Perez to continue to access services through [facility]. She reported uncertainty that Dr. Portillo may not be willing to order medications and prescriptions. She directed this junior copywriter to re-fax prescriptions to [facility] [employer] F#[phone]. CM faxed prescriptions attn: Dr. Portillo.
== END 2021-01-05 13:18 | disposition designated cancer center or children's hospital (05) | DRG 442 ==
LOC: ER 05:47 → MS 06:12
PROVIDERS: Internal Medicine; Admitting Provider Family Medicine; Emergency Provider Student in an Organized Health Care Education/Training Program; PCP Nurse Practitioner Family; Visit Provider Family Medicine
DX: K72.90 Hepatic failure, unspecified without coma (principal); I85.10 Secondary esophageal varices without bleeding; E11.65 Type 2 diabetes mellitus with hyperglycemia; Z89.612 Acquired absence of left leg above knee; I10 Essential (primary) hypertension; L40.0 Psoriasis vulgaris; F10.11 Alcohol abuse, in remission; D69.6 Thrombocytopenia, unspecified; K70.30 Alcoholic cirrhosis of liver without ascites; D64.9 Anemia, unspecified; K74.60 Unspecified cirrhosis of liver; B19.20 Unspecified viral hepatitis C without hepatic coma; E83.42 Hypomagnesemia; I44.7 Left bundle-branch block, unspecified; Z20.822 Contact with and (suspected) exposure to COVID-19
CPT/HCPCS: 36415; 80048; 80053; 80307; 87635; 93005; 93306; 96365; 96372; 97110; 97162; 97530; 99220; 99232; 99239; 99285; NC; 70450; 80320; 81003; 82140; 82607; 82728; 82746; 83036; 83540; 83550; 83735; 84443; 84484; 85025; 85610; 93010; G0378; J1630; J1941; J8597

== ENCOUNTER 2021-01-07 07:57 | Outpatient (REF) | payer SELFPAY ==
[2021-01-07 09:36] LABS: Anion Gap 4.5 mmol/L (3-11); BUN 14 mg/dL (7-18); CO2 29.5 mmol/L (21.0-32.0); Calcium 8.7 mg/dL (8.5-10.1); Chloride 99 mmol/L (98-107); Glucose 370 mg/dL (74-106); Magnesium 1.9 mg/dL (1.8-2.4); Potassium 4.4 mmol/L (3.5-5.1); Sodium 133 mmol/L (136-145)
== END 2021-01-07 07:58 | disposition home or self-care (01) ==
LOC: NCHCN 07:57
PROVIDERS: PCP Nurse Practitioner Family; Visit Provider Nurse Practitioner Family
DX: E83.42 Hypomagnesemia (principal)
CPT/HCPCS: 80048; 83735

== ENCOUNTER 2021-02-03 12:59 | Outpatient (REF) | payer MEDICARE, SELFPAY ==
[2021-02-03 14:11] LABS: Bilirubin Negative (Negative); Blood Trace-intact (Negative); Clarity Clear (Clear); Glucose Negative (Negative); Ketones Negative (Negative); Leukocyte Esterase Negative (Negative); Nitrite Negative (Negative); Urobilinogen 0.2 EU/dL (Up TO 0.2); pH 5.5 (5-8)
[2021-02-03 14:20] LABS: Iron 117 ug/dL (65-175); Total Iron Binding Capacity 204 ug/dL (250-450); Transferrin Sat 57 % (20-55)
[2021-02-03 14:22] LABS: COMMENT (LAB VIEW ONLY) 34.89 mg/dL; Microalb ug/mg Crea 13.8 ug/mg Cr
[2021-02-03 14:38] LABS: Vitamin B12 1381 pg/mL (193-986)
[2021-02-03 14:44] LABS: Bacteria Rare HPF (Negative); C & S Indicated? No; Casts Negative LPF (Negative); Crystals Negative HPF (Negative); Epithelial Cells Rare HPF (Negative); Mucus Negative (Negative); Other Cells Negative (Negative); WBC Negative HPF (0-5)
== END 2021-02-03 13:00 | disposition home or self-care (01) ==
LOC: NCHCN 12:59
PROVIDERS: PCP Nurse Practitioner Family; Visit Provider Nurse Practitioner Family
DX: D50.9 Iron deficiency anemia, unspecified (principal); E11.59 Type 2 diabetes mellitus with other circulatory complications; K21.9 Gastro-esophageal reflux disease without esophagitis; K72.90 Hepatic failure, unspecified without coma; I10 Essential (primary) hypertension; G54.6 Phantom limb syndrome with pain; Z89.612 Acquired absence of left leg above knee; F41.9 Anxiety disorder, unspecified; R39.9 Unspecified symptoms and signs involving the genitourinary system
CPT/HCPCS: 81003; 81015; 82043; 82570; 82607; 83540; 83550

== ENCOUNTER 2021-02-10 10:29 | Emergency (ER) | payer MEDICARE, SELFPAY ==
[2021-02-10] VITALS (48 sets, daily range): BP systolic 91–155; BP diastolic 66–111; PULSE 61–92; RESP 8–24; TEMP 36.7–36.8; O2SAT 90–97
--- NOTE | 2021-02-10 10:45 | RT.EKG_ITS ---
APPROVED REPORT Exam: Resting ECG Patient Location: E HR:68 bpm ECG Measurements Heart Rate 68 AXIS ND 231 P -47 QRSd 130 QRS -50 QT 444 T 68 QTc 471 Conclusion Sinus or ectopic atrial rhythm. Atrial premature complex. Prolonged ND interval. Left bundle branch block
--- NOTE | 2021-02-10 10:45 | DI.CT_ITS ---
EXAM: CT ABDOMEN PELVIS W CLINICAL HISTORY: LLQ abdominal pain, bloody stool. TECHNIQUE: Imaging Protocol: Axial computed tomography images with coronal and sagittal reformatted images were created and reviewed CONTRAST MATERIAL: Intravenous: Omnipaque 100cc Oral: None COMPARISON: No exams were available for comparison FINDINGS: VISUALIZED LUNG BASES: No nodules nor pleural effusions evident. ABDOMEN: There is moderate amount of ascites in both sides of the abdomen and mild in the pelvis. LIVER: Liver appears diffusely cirrhotic. No obvious discrete focal hepatic lesions evident. GALLBLADDER/BILIARY: Multiple gallstones noted. CBD is not dilated. PANCREAS: There is a 1.5 x 1.0 centimeter hypodense mass in the inferior aspect of the pancreatic hea d, uncinate process, this contiguous with but separate from the superior wall of the duodenal C loop. No obvious regional lymphadenopathy evident. No vascular encasement SPLEEN: Spleen is enlarged. There is significant portal hypertension here with multiple varices incl uding multiple periesophageal varices ADRENALS: There are no significant adrenal masses. KIDNEYS:There is a tiny nonobstructive 1-2 millimeter calculus in the left kidney. No other signific ant focal renal findings. No solid renal masses.. ABDOMINAL AORTA: Abdominal aorta is not enlarged. LYMPH NODES:There is no retroperitineal nor paraaortic adenopathy. ABDOMINAL WALL/GI: No evidence of significant anterior abdominal wall hernia. The colon is edematous , this most evident at the level of the redundant sigmoid consistent with significant colitis. There is also abundant air-gas with in the portal venous system throughout the abdomen including collatera ls. PELVIS: GI: No evidence of appendicitis.No evidence of sigmoid diverticulitis. LYMPH NODES: There is no intrapelvic nor inguinal adenopathy. REPRODUCTIVE: Age-appropriate URINARY BLADDER: No calculi nor obvious masses evident OSSEOUS: Benign-appearing bone lesion in the subtrochanteric region of the left hip. This may be a p artial channel from prior quan presence. IMPRESSION: 1. There is advanced hepatic cirrhosis, splenomegaly, abundant varices including severe periesophagea l varices and there is moderate ascites. No obvious hepatoma evident. 2. There is a concerning 15 x 10 millimeter hypodense mass in the uncinate process of the pancreas, s uspicious for malignancy. Pancreatic duct is not dilated. 3. The colon is diffusely edematous and weeping, the most significant colitis appearing to be at the sigmoid level. In addition, there is the ominous finding of intravascular air-gas within the collate ral venous channels portal venous system. These are quite prominent around the descending-left colon but also seen elsewhere. 4. Cholelithiasis. Multiple gallstones noted on dependent wall the gallbladder. No obvious acute ch olecystitis. RADIATION DOSE DELIVERED: 1,192.37mGy.cm Total DLP DATA REPOSITORY: All CT scans at this facility are submitted to the National Radiology Data Registry (NRDR) Dose Index Registry (DIR) with the [employer] (ACR). RADIATION OPTIMIZATION: All CT scans at this facility use at least one of these dose optimization te chniques: automated exposure control; mA and/or kV adjustment per patient size (includes targeted exa ms where dose is matched to clinical indication); or iterative reconstruction.
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
[2021-02-10] MEDS: MORPHine 10 MG/ML VIAL 4 MG IVP (11:03)
[2021-02-10] MEDS: Normal Saline 1,000 ML 125 ML IV (11:03)
--- NOTE | 2021-02-10 11:05 | NUR.NOTE ---
Pt denies morphine allergy. States is able to take it.
[2021-02-10 11:07] LABS: Abs Immature Grans 0.05 10^3/uL (0.0-0.06); Absolute Basophil Count 0.02 10^3/uL (0.0-0.2); Absolute Eosinophil Count 0.32 10^3/uL (0.0-0.7); Absolute Lymphocyte Count 1.07 10^3/uL (1.2-3.4); Absolute Monocyte Count 0.81 10^3/uL (0.1-0.8); Absolute Neutrophil Count 7.97 10^3/uL (1.2-6.7); Basophils % 0.2; Eosinophils % 3.1; HCT 44.9 % (40.0-50.0); HGB 15.2 g/dL (13.5-17.5); Immature Grans % 0.5; Lymphocytes % 10.4; MCH 32.5 pg (27.0-33.0); MCHC 33.9 % (32.0-36.0); MCV 95.9 fL (80-95); Monocytes % 7.9; Neutrophils % 77.9; Nucleated RBC 0 %; RBC 4.68 10^6/uL (4.36-5.78); RDW-SD 53.3 fL; WBC 10.24 10^3/uL (4.4-10.8)
[2021-02-10 11:26] LABS: ALT 41 U/L (16-63); AST 43 U/L (15-37); Albumin 2.9 g/dL (3.4-5.0); Alkaline Phosphatase 192 U/L (46-116); BUN 17 mg/dL (7-18); Bilirubin, Total 3.5 mg/dL (0.2-1.0); CREATININE 1.1 mg/dL (0.70-1.30); Calcium 8.7 mg/dL (8.5-10.1); Chloride 102 mmol/L (98-107); Glucose 181 mg/dL (74-106); Lipase 85 U/L (73-393); Magnesium 1.5 mg/dL (1.8-2.4); Potassium 3.3 mmol/L (3.5-5.1); Sodium 137 mmol/L (136-145); Total Protein 7.5 g/dL (6.4-8.2)
[2021-02-10 11:27] LABS: Troponin I 0.13 ng/mL (<0.06)
[2021-02-10 11:28] LABS: Ammonia 54 umol/L (11-32)
--- NOTE | 2021-02-10 11:30 | DI.RAD_ITS ---
EXAM: XR CHEST 2V PA LATERAL CLINICAL HISTORY: Left abd pain. TECHNIQUE: 2D digital imaging was performed. COMPARISON: No exams were available for comparison FINDINGS: Heart size is minimally prominent. The mediastinum is not widened. Lungs are clear. No infiltrates nor pleural effusions. Pulmonary edema. IMPRESSION: No acute pulmonary findings.. Mild cardiomegaly. Accessory azygos lobe incidentally noted on right side DATA REPOSITORY: RADIATION DOSE DELIVERED:
[2021-02-10 11:35] LABS: Platelet Count 120 10^3/uL (130-400)
[2021-02-10 11:36] LABS: Diff Comment Diff Reviewed; RBC Morphology Normal
[2021-02-10] MEDS: Omnipaque 350 MG/ML 100 ML BTL IJ (11:58)
[2021-02-10] MEDS: Normal Saline - Diluent 50 ML VIAL IV (11:58)
--- NOTE | 2021-02-10 12:15 | RT.EKG_ITS ---
APPROVED REPORT Exam: Resting ECG Patient Location: E HR:72 bpm ECG Measurements Heart Rate 72 AXIS GA 168 P 6 QRSd 132 QRS -52 QT 447 T 74 QTc 489 Conclusion Sinus rhythm. LBBB
[2021-02-10] MEDS: MAGNESIUM SULFATE 1 GM/100 ML BAG IVPB (12:20)
[2021-02-10] MEDS: Normal Saline Flush 10 ML SYR IVP (12:29)
[2021-02-10] MEDS: HYDROmorphone 2 MG/ML VIAL 1 MG IVP ×3 (12:29→16:23)
[2021-02-10] MEDS: PIPERACILLIN/TAZO 4.5 GM in Normal Saline 100 ML IVPB ×2 (13:08→18:54)
[2021-02-10 13:23] LABS: Source Nasal/Nares
[2021-02-10 14:05] LABS: COVID-19 PCR Negative (Negative)
[2021-02-10 14:13] LABS: Troponin I 0.13 ng/mL (<0.06)
--- NOTE | 2021-02-10 14:27 | NUR.NOTE ---
Up to commode with 1 assist. producing red watery stools with foam.
[2021-02-10 15:57] LABS: C Diff PCR Negative (Negative)
--- NOTE | 2021-02-10 16:35 | NUR.NOTE ---
Pt states he has been voiding small amounts while moving his bowels. Aware we need a sample.
--- NOTE | 2021-02-10 18:00 | RT.EKG_ITS ---
APPROVED REPORT Exam: Resting ECG Patient Location: E HR:80 bpm ECG Measurements Heart Rate 80 AXIS SD 167 P 17 QRSd 128 QRS -54 QT 429 T 77 QTc 496 Conclusion Sinus rhythm...normal P axis, V-rate 60- 99 There are no significant changes compared to prior EKG performed on 02/10/2021 at 13:40. I have reviewed and interpreted ECG and agree with software generated interpretation.
--- NOTE | 2021-02-10 18:08 | NUR.NOTE ---
third ECG done.
[2021-02-10 18:32] LABS: Troponin I 0.12 ng/mL (<0.06)
--- NOTE | 2021-02-10 19:18 | NUR.NOTE ---
Report to Carmella at [facility]. Pt transported out with all belongings. Pt noted to have villegas and envelope full of villegas in his pocket when bagging his belongings. this rn did not handle money. Pt advised to ask for money to be placed somewhere safe on arrival to [place].
--- NOTE | 2021-02-10 21:16 | PCNE_ITS ---
Date of service: 02/10/21 Time of Service: 16:16 History of Present Illness History of Present Illness Chief Complaint: severe abdominal pain, ? new pancreatic mass, colitis Narrative: I was asked by Dr Deep Ambrosio to see Perez in the ER. He was brought in by ambulance with severe abdominal pain. He reports he had 3 days of bloody stool prior to coming to the ER. His pain is primarily in the LLQ. On imaging, he was found to have air in his portal vein. He also had an elevated troponin, which likely represents an NSTEMI. Perez has a history of alcoholic cirrhosis and a left AKA due to multiple complications following a TKR. He has been living at [facility] as he was not able to manage alone in his [facility] apartment. His brother and health care agent, Lynsey Newton, lives in [facility]. Perez has hoped to return there in the future. Today, I explained to Perez that he is critically ill. Our [facility] does not have the resources to manage his multiple illness at this time. He agreed to be transferred, [place] a [facility] [place]. Perez was clear with me that he wants aggressive care as long as it leaves him able to move toward independence. I explained that we can't always tell where he will end up; he wants everything done to give me a chance. Perez likes to be given clear information, no matter how dire. He does much better knowing details about his health. I called his brother Lynsey at Perez's request, and relayed what was happening with Perez. Consults Consult date: 02/10/21 Requesting physician: Bunny Ambrosio Assessment and Plan Assessment and plan (1) Goals of care, counseling/discussion: Status: Acute Assessment and plan: Perez does not have a COLST form but he is quite clear that he wants aggressive care. He would like surgery if indicated. He would like to have a pancreatic mass biopsy if indicated. He wants to be FULL CODE. He wants transfer to a tertiary care center that can handle his multiple co-morbidities. I did share his wishes with his brother LYNSEY by phone, so he is aware of Perez's wishes. (2) Colitis: Status: Acute Assessment and plan: He did not look as uncomfortable when I was seeing him as he had been on admission, per nursing report. He did have + bs wnl. Imaging supportive of colitis, but most concerning was his portal vein air, which could indicate gut. Dr Ambrosio consulted [facility] surgeon Dr Renae, and she advised no surgery emergently, but he should be at a facility where this could be done if needed. Dr Ambrosio working on transfer to [place] facility at time of my visit. (3) Mass of pancreas: Status: Acute Assessment and plan: wants biopsy and treatment if indicated (4) GI bleed: Status: Chronic Assessment and plan: No sandra blood during my exam. No smell of GI bleed ing in the room. (5) Demand ischemia: Status: Acute Assessment and plan: troponin up to 0.13, starting to come down at latest lab to 0.12 (6) Esophageal varices in cirrhosis: Status: Chronic Assessment and plan: high risk for surgery best done at tertiary care center (7) Palliative care patient: Status: Chronic Assessment and plan: Recommend that he connect with pall care services wherever he ends up. Needs help figuring out his wishes and goals; paperwork to that extent should be done. Review of Systems Constitutional Constitutional: Reports chills, Reports fatigue, Denies increased appetite, Reports lethargy, Reports poor appetite and Reports weakness Eyes Eyes: Reports dry eyes and Reports requires corrective lenses ENT Ears, Nose, Mouth, and Throat: Reports dry mouth and Reports disequilibrium Cardiovascular Cardiovascular: Reports lightheadedness, Reports dyspnea and Reports dyspnea on exertion Respiratory Respiratory: Reports dyspnea and Reports dyspnea on exertion Gastrointestinal Gastrointestinal: Reports abdominal pain, Reports bloating, Reports hematochezia, Reports cramping, Reports early satiety and Reports loose stools Genitourinary Genitourinary: Reports oliguria Musculoskeletal Musculoskeletal: Reports atrophy, Reports muscle weakness and Reports stiffness Integumentary/Breasts Skin/Breast: Reports dry skin Neurologic Neurologic: Reports disequilibrium and Reports weakness Psychiatric Psychiatric: Reports depression, Reports difficulty concentrating, Reports hopelessness and Reports anhedonia Endocrine Endocrine: Reports fatigue [facility] Medical History (Updated 02/13/21 @ 14:18 by Alejandra Mcdonald MD) Acute pain of both shoulders Alcohol abuse, in remission Alcoholic cirrhosis of liver with ascites Anemia combination of hemolysis, iron deficiency, anemia of chronic disease, blood loss. 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 Obesity Old lacunar stroke without late effect right frontal and left parietal lobe lacunar infarcts on MRI brain from 04/2020 Palliative care patient Psoriasis Psoriatic arthritis Squamous cell carcinoma Streptococcal sepsis with septic left knee of armed forces Wheelchair bound awaiting prothesis Surgical History History of arthroplasty of left knee requiring explantation due to septic left knee Hx of AKA (above knee amputation) left leg due to complications of TKR S/P AKA (above knee amputation) unilateral Due to multiple infections in left knee prosthesis Family History Brother No problems noted. Social History (Updated 02/13/21 @ 13:38 by Alejandra Mcdonald MD) Smoking/Tobacco Use Status: Never Smoking risk assessment performed?: Yes Alcohol Intake: former Substance use type: former substance user and crack/cocaine Caregiver/Support person: Yes Household members: caregiver Housing: assisted living facility Communication Needs: Hard of Hearing and Corrective Lenses Education Level: high school Do you need help understanding health information?: Always current occupation: disabled vet Pets and animals: No Current gender identity: male How often do you talk on the phone with friends or family?: three or more times per week How often do you get together with friends or relatives?: never Panel score (0-1 are the most socially isolated patients): 1 What type of physical activity do you participate in: sedentary lifestyle and wheelchair-bound Special johnny needs: No Seatbelt use: sometimes Water heater temp set <120 deg: Yes Working smoke detector in home: Yes Fire extinguisher in home: Yes Do you feel safe at home: Yes Additional Social history: 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 He has lived at [facility] since February [facility]. His health care agent is his brother, Lynsey, who lives in [place]. Trey's most recent admission to an inpatient hospital was due him hallucinating and trembling, associated with his alcoholism. He was brought to [facility] by the [place] police department. Since he's been living at [facility], he's been sober. He is status post an AKA of his left leg. He says this began with an infection from a TKR. He admits that some months of his life are hard for him to remember. He is a vague historian. He is hoping to get a prosthesis fit and then move back to [facility] near his brother. [facility]. Covid-19 has slowed down the process. Exam Narrative Exam Narrative: GEN: awake, alert, oriented 3. Pleasant, well groomed, interactive. HEAD: Normocephalic, atraumatic ENT: Mucous membranes dry, oropharynx unremarkable, External ear exam unremarkable EYES: PERRL, EOMI NECK: Full ROM, no ANNAMARIE, no menigismus CHEST/RESP: Nontender, clear to auscultation bilateral, no wheeze/rhonchi/rales CARDIOVASCULAR: RRR, no murmur, rub gudelia. 2+ Rad pulse bilateral ABDOMEN: Soft, tender in the left lower quadrant with mild rebound, no mass. +Bowel sounds. Normal rectal tone, no mass, faintly guaiac positive mucus present. No active bleeding EXT: Full ROM, left [id number] amputation Neuro: Grossly normal neurologic exam, conversant, interactive. Psych: Speech fluent, thoughts congruent, affect normal Results Last Vital Signs Temp 98.1 F 02/10/21 14:21 Pulse 80 02/10/21 18:31 Resp 9 L 02/10/21 18:31 BP 109/72 02/10/21 18:31 Pulse Ox 91 L 02/10/21 18:31 Labs Result diagrams: 02/10/21 10:45 02/10/21 10:45 Labs: Laboratory Results - last 24 hr 02/10/21 02/10/21 02/10/21 10:45 10:45 10:45 WBC 10.24 RBC 4.68 Hgb 15.2 Hct 44.9 MCV 95.9 H MCH 32.5 MCHC 33.9 RDW 15.0 H Plt Count 120 L MPV Immature Gran % 0.5 Neutrophils % 77.9 Lymphocytes % 10.4 Monocytes % 7.9 Eosinophils % 3.1 Basophils % 0.2 Nucleated RBC % 0 Absolute Neutrophils 7.97 H Absolute Lymphocytes 1.07 L Absolute Monocytes 0.81 H Absolute Eosinophils 0.32 Absolute Basophils 0.02 RBC Morphology Normal VBG Lactate 2.0 H Sodium 137 Potassium 3.3 L Chloride 102 Carbon Dioxide 28.0 Anion Gap 7.0 BUN 17 Creatinine 1.1 Estimated GFR/1.73 m2 >= 60.00 Glucose 181 H Calcium 8.7 Magnesium 1.5 L Total Bilirubin 3.5 H AST 43 H ALT 41 Alkaline Phosphatase 192 H Ammonia Troponin I 0.13 H* Total Protein 7.5 Albumin 2.9 L Lipase 85 Stl C.difficile Tox PCR COVID-19 Source SARS-CoV-2 (PCR) Patient ABO/Rh Antibody Screen 02/10/21 02/10/21 02/10/21 10:45 11:16 12:33 WBC RBC Hgb Hct MCV MCH MCHC RDW Plt Count MPV Immature Gran % Neutrophils % Lymphocytes % Monocytes % Eosinophils % Basophils % Nucleated RBC % Absolute Neutrophils Absolute Lymphocytes Absolute Monocytes Absolute Eosinophils Absolute Basophils RBC Morphology VBG Lactate Sodium Potassium Chloride Carbon Dioxide Anion Gap BUN Creatinine Estimated GFR/1.73 m2 Glucose Calcium Magnesium Total Bilirubin AST ALT Alkaline Phosphatase Ammonia 54 H Troponin I Total Protein Albumin Lipase Stl C.difficile Tox PCR Negative COVID-19 Source SARS-CoV-2 (PCR) Patient ABO/Rh AB Positive Antibody Screen Negative 02/10/21 02/10/21 02/10/21 13:10 13:45 18:00 WBC RBC Hgb Hct MCV MCH MCHC RDW Plt Count MPV Immature Gran % Neutrophils % Lymphocytes % Monocytes % Eosinophils % Basophils % Nucleated RBC % Absolute Neutrophils Absolute Lymphocytes Absolute Monocytes Absolute Eosinophils Absolute Basophils RBC Morphology VBG Lactate Sodium Potassium Chloride Carbon Dioxide Anion Gap BUN Creatinine Estimated GFR/1.73 m2 Glucose Calcium Magnesium Total Bilirubin AST ALT Alkaline Phosphatase Ammonia Troponin I 0.13 H* 0.12 H* Total Protein Albumin Lipase Stl C.difficile Tox PCR COVID-19 Source Nasal/nares SARS-CoV-2 (PCR) Negative Patient ABO/Rh Antibody Screen
[2021-02-11 10:59] LABS: Campylobacter PCR Negative (Negative); Salmonella PCR Negative (Negative); Shiga Toxin PCR Negative (Negative); Shigella/Enteroinvasive Ecoli Negative (Negative)
== END 2021-02-10 19:00 | disposition short-term general hospital (02) ==
PROVIDERS: Emergency Medicine; Emergency Provider Emergency Medicine; PCP Nurse Practitioner Family
DX: K70.31 Alcoholic cirrhosis of liver with ascites (principal); K52.89 Other specified noninfective gastroenteritis and colitis; I24.8 Other forms of acute ischemic heart disease; K92.2 Gastrointestinal hemorrhage, unspecified; K86.89 Other specified diseases of pancreas
CPT/HCPCS: 80053; 83690; 86850; 86900; 86901; 87493; 87505; 87635; 93005; 96365; 96375; 96376; 99285; 71046; 74177; 82140; 83605; 83735; 84484; 85025; 93010; 99284; J2270; J2543; J3475; J3490

== ENCOUNTER 2021-02-19 15:37 | Outpatient (REF) | payer MEDICARE, SELFPAY ==
[2021-02-19 15:33] LABS: C Diff PCR Negative (Negative)
== END 2021-02-19 15:38 | disposition home or self-care (01) ==
LOC: NCHCN 15:37
PROVIDERS: PCP Nurse Practitioner Family; Visit Provider Nurse Practitioner Family
DX: K52.9 Noninfective gastroenteritis and colitis, unspecified (principal); K86.9 Disease of pancreas, unspecified; K72.90 Hepatic failure, unspecified without coma
CPT/HCPCS: 87493; 83630; 87177; 87230

== ENCOUNTER 2021-02-22 14:53 | Outpatient (REF) | payer MEDICARE, SELFPAY ==
[2021-02-22 18:03] LABS: ALT 31 U/L (16-63); AST 49 U/L (15-37); Albumin 2.3 g/dL (3.4-5.0); Alkaline Phosphatase 144 U/L (46-116); Amylase 104 U/L (25-115); BUN 13 mg/dL (7-18); Bilirubin, Total 0.9 mg/dL (0.2-1.0); CREATININE 0.9 mg/dL (0.70-1.30); Calcium 8.2 mg/dL (8.5-10.1); Chloride 104 mmol/L (98-107); Glucose 197 mg/dL (74-106); Lipase 202 U/L (73-393); Magnesium 1.6 mg/dL (1.8-2.4); Potassium 3.6 mmol/L (3.5-5.1); Sodium 141 mmol/L (136-145); Total Protein 5.5 g/dL (6.4-8.2)
== END 2021-02-22 14:54 | disposition home or self-care (01) ==
LOC: NCHCN 14:53
PROVIDERS: PCP Nurse Practitioner Family; Visit Provider Nurse Practitioner Family
DX: K52.9 Noninfective gastroenteritis and colitis, unspecified (principal); K86.9 Disease of pancreas, unspecified; K72.90 Hepatic failure, unspecified without coma
CPT/HCPCS: 80053; 83690; 87505; 82150; 83735; 85025

== ENCOUNTER 2021-03-08 12:16 | Outpatient (REF) | payer MEDICARE, SELFPAY ==
[2021-03-10 10:57] LABS: CA 19-9 9 U/mL (<35)
== END 2021-03-08 12:17 | disposition home or self-care (01) ==
LOC: NCHCN 12:16
PROVIDERS: PCP Nurse Practitioner Family; Visit Provider Nurse Practitioner Family
DX: K86.9 Disease of pancreas, unspecified (principal)
CPT/HCPCS: 86301

== ENCOUNTER 2021-03-10 22:17 | Observation (INO) | payer OTHER, SELFPAY ==
[2021-03-10 22:20] VITALS: PULSE 76; RESP 16; TEMP 36.8; O2SAT 95
--- NOTE | 2021-03-10 22:20 | W.ED.GENAD ---
Discharge Plan Disposition Patient Disposition: [facility] INPATIENT Condition: Stable Discharge Details Clinical Impression: Epigastric abdominal pain, Hallucinations, Increased ammonia level Primary Care Provider: Tammie Woodward ED Provider: Artemio Kaur Home Meds and New Rx's Prescriptions: No Action multivitamin Tablet 1 tab PO DAILY RF: 0 venlafaxine 75 mg Capsule,Extended Release 24hr 75 mg PO QHS RF: 0 famotidine 10 mg Tablet 10 mg PO DAILY RF: 0 trazodone 50 mg Tablet 50 mg PO HS RF: 0 nystatin 100,000 unit/gram Ointment 1 applic TOPICAL BID RF: 0 ondansetron HCl [Zofran] 4 mg Tablet 4 mg PO Q6H PRNRF: 0 melatonin 3 mg Tablet 3 mg PO HS RF: 0 tramadol 50 mg Tablet 50 mg PO BID RF: 0 docusate sodium [Colace] 100 mg Capsule 100 mg PO BID RF: 0 omeprazole 20 mg Capsule,Delayed Release(Dr/Ec) 20 mg PO BID RF: 0 polyethylene glycol 3350 [Miralax] 17 gram/dose Powder 17 g PO BID PRNRF: 0 propranolol 20 mg Tablet 20 mg PO BID RF: 0 buspirone 15 mg Tablet 7.5 mg PO DIRECTED RF: 0 Xifaxan 550 mg Tablet 550 mg PO BID RF: 0 spironolactone 50 mg Tablet 100 mg PO DAILY Qty: 30 RF: 0 insulin aspart U-100 [Novolog Flexpen U-100 Insulin] 100 unit/mL (3 mL) Insulin Pen 12 unit subcut 0800,1200,1700 Qty: 15 RF: 0 sennosides [senna] 8.6 mg Tablet 8.6 mg PO BID Qty: 60 RF: 0 acetaminophen [Tylenol] 325 mg Tablet 650 mg PO Q6H PRNQty: 60 RF: 0 lactulose 10 gram/15 mL (15 mL) Solution 30 g PO QID Qty: 4000 RF: 0 (DME) blood-glucose meter Misc See Rx Instructions .ROUTE .MEDSUPPLY Qty: 1 RF: 0 (DME) Advanced Gluc Meter Test Strip Strip See Rx Instructions .ROUTE .MEDSUPPLY Qty: 100 RF: 0 (DME) lancets [Lancets, Super Thin] Misc See Rx Instructions .ROUTE .MEDSUPPLY Qty: 200 RF: 0 furosemide [Lasix] 40 mg Tablet 40 mg PO DAILY RF: 0 prazosin 1 mg Capsule 1 mg PO QHS RF: 0 pregabalin [Lyrica] 50 mg Capsule 50 mg PO BID RF: 0 Victoza 2-Cain 0.6 mg/0.1 mL (18 mg/3 mL) Pen Injector 0.6 mg SUBCUT Q24H RF: 0 Lantus Solostar U-100 Insulin 100 unit/mL (3 mL) insulin pen 42 unit subcut HS RF: 0 zonisamide 25 mg Capsule 75 mg PO BID RF: 0 lactulose 10 gram/15 mL Solution 45 g PO Q2H PRN (Reason: Constipation) RF: 0 Medical Decision Making <Camilo Bernardo MD - Last Filed: 03/10/21 22:39> 65 yo male with hx of cirrhosis with former alcohol abuse, dm, who was transferred to [facility] (due to lack of other hospitals having bed capacity) 02/[address] findings of : IMPRESSION: 1. There is advanced hepatic cirrhosis, splenomegaly, abundant varices including severe periesophageal varices and there is moderate ascites.? No obvious hepatoma evident. 2. There is a concerning 15 x 10 millimeter hypodense mass in the uncinate process of the pancreas, suspicious for malignancy.? Pancreatic duct is not dilated. 3. The colon is diffusely edematous and weeping, the most significant colitis appearing to be at the sigmoid level.? In addition, there is the ominous finding of intravascular air-gas within the collateral venous channels portal venous system.? These are quite prominent around the descending-left colon but also seen elsewhere. 4. Cholelithiasis.? Multiple gallstones noted on dependent wall the gallbladder.? No obvious acute cholecystitis. who comes in with ems from [facility] with nausea for a day and epigastric pain. He states he has had hallucinations as well but this has been going on for a year or longer and he notes that he will think he sees people that aren't there just staring at him. He denies chest pain or pressure, no dyspnea. He states while at [facility] he was just treated with iv antibiotics and discharged, will try to get records from the admission. He arrives caox4 with no focal neuro deficits. For unclear reasons he hasn't had his lactulose for several days and hasn't had a bowel movement. HE is tender in the epigastric region and left sided abdomen without guarding. Given his history and symptoms will obtain ct abdomen/pelvis to evaluate for acute surgical pathology and also ct head given he feels his hallucinations are worsening. He may end up needing a diagnostic paracentesis if ct shows no sbo or other structural reason to safely perform the paracentesis and no other cause for his symptoms are found. No chest pain or pressure but in January's visit did have elevated troponin with similar symptoms, will obtain ecg and troponin given he does have epigastric pain Medical Records Medical records reviewed: Yes I reviewed the patient's medical records. ECG Data Attestation: I personally reviewed and interpreted this ECG (s) as follows: Prior ECG tracings: available for review Interpretation: sinus rhythm, rate of 64, pr 176, no acute st t wave ischemic findings compared to old ekg <Artemio Kaur DO - Last Filed: 03/11/21 01:25> This is a 65-year-old male who was signed out to me by my colleague Dr. Camilo Bernardo, please refer to his HPI, physical exam assessment and plan. At time of signout we are waiting on labs and CT imaging of his head and abdomen. Patient's laboratory work-up is returned, no white count, bandemia, or left shift. Lactate is 1.9, however the patient is a known chronic cirrhotic. Bilirubin unremarkable. Ammonia level notably elevated at 204, I suspect this is a causative etiology for his hallucinations and slight altered mental status. Ethyl alcohol level normal. Troponin normal. CT scan of the head negative for acute process per virtual radiology. CT scan of the abdomen demonstrate extensive fat stranding about the colon which could be secondary to colitis or third spacing of fluids. There is advanced cirrhosis present, portal hypertension, but no other acute process. There is a lesion arising in the uncinate process of the pancreas, this is unchanged. Repeat exam at bedside demonstrates a comfortable male, no significant tenderness on palpation of the abdomen. Definitely no evidence of an acute surgical abdomen. Symptoms appear clinically inconsistent with spontaneous bacterial peritonitis, and on exam he shows no peritoneal signs. CT scan shows no evidence of significant ascites that could even be tapped. I suspect the fat stranding is secondary to third spacing of fluids, and not secondary to colitis as there is no clinical evidence of that at this time as he is afebrile, has no white count, has no left shift, and does not at this time demonstrate evidence of infection clinically. Will hold off any antibiotics for the time being. I do feel that the patient would benefit from inpatient admission as his ammonia levels normalized. We will give a dose of lactulose here in the ED and contact the hospitalist for admission. 1:25 AM Discussed the case with Dr. Gutierrez, he agrees with the assessment and plan. I will place bridging orders on his behalf. I have extensively reviewed the treatment plan with the patient. I have addressed all patient concerns at this time. I have also discussed the plan with the admitting physician and they agree with the current assessment and plan and have agreed to assume responsibility for the patient. All parties demonstrate verbal understanding and agreement with our assessment and plan at this time. The documentation in this chart was dictated using [employer] dictation software. Please excuse any dictation errors. IMPRESSION: 1. No bowel obstruction. 2. Extensive fat stranding about the colon could be secondary to colitis or 3rd spacing of fluid. 3. Advanced cirrhosis complicated by development of portal hypertension, manifest with splenomegaly, varices and ascites. 4. Cholelithiasis. 5. Gastric rugal prominence. Correlate clinically for the presence of gastritis. 6. No change in lesion arising in uncinate process of the pancreas. Thank you for allowing us to participate in the care of your patient. Dictated and Authenticated by: Manohar Solorio DO 03/11/2021 12:55 AM Eastern Time ([place] & [place]) IMPRESSION: 1. Age-related atrophy and chronic small vessel deep white matter ischemic disease. 2. No acute intracranial pathology. 3. Stable exam since 01/02/2021. Thank you for allowing us to participate in the care of your patient. Dictated and Authenticated by: Perez Mead MD 03/11/2021 12:19 AM Eastern Time ([place] & [place]) you should be irons and mine workspace was gotten a little bit of for my basement which is about 5-1/2 of that I have there although CSL that actually LAD I have 1234 02/18/1970 and 08/27/2013 40 1516 like 70 5 Monocryl equivalent. It is like it is healed there is a couple LAD 35 I get this covered the [employer] [place] [employer] may have a cousin who is single soft without a 5 little thing himself than once we discovered that changes are little on the right versus been working trying to get UV light right Barbara, Her neck HPI <Camilo Bernardo MD - Last Filed: 03/10/21 22:39> General Mode of arrival: EMS. Date/Time Provider Initiated Documentation: 03/10/21 22:25. Limitations to Documentation: no limitations and altered mental status. Information obtained by: EMS. History of Present Illness 65 year old M presents to the emergency department with the chief complaint of nausea, described as moderate, Patient started experiencing this day(s) (1) and it has been constant. No relieving factors improve symptom(s), No exacerbating factors reported . Patient did receive the following treatments prior to arrival, none Related Data Home Medications Medication Instructions Recorded Confirmed Xifaxan 550 mg PO BID 01/02/21 03/10/21 buspirone 7.5 mg PO DIRECTED 01/02/21 03/11/21 docusate sodium [Colace] 100 mg PO BID 01/02/21 03/10/21 famotidine 10 mg PO DAILY 01/02/21 03/10/21 melatonin 3 mg PO HS 01/02/21 03/10/21 multivitamin 1 tab PO DAILY 01/02/21 03/10/21 nystatin 1 applic TOPICAL BID 01/02/21 03/10/21 omeprazole 20 mg PO BID 01/02/21 03/10/21 ondansetron HCl [Zofran] 4 mg PO Q6H PRN 01/02/21 03/10/21 polyethylene glycol 3350 [Miralax] 17 g PO BID PRN 01/02/21 03/10/21 propranolol 20 mg PO BID 01/02/21 03/10/21 tramadol 50 mg PO BID 01/02/21 03/10/21 trazodone 50 mg PO HS 01/02/21 03/10/21 venlafaxine 75 mg PO QHS 01/02/21 03/10/21 acetaminophen [Tylenol] 650 mg PO Q6H PRN #60 tab 01/05/21 03/10/21 blood sugar diagnostic [Advanced #100 ea 01/05/21 03/10/21 Gluc Meter Test Strip] blood-glucose meter #1 ea 01/05/21 03/10/21 insulin aspart U-100 [Novolog 12 unit SUBCUT 0800,1200,1700 #15 01/05/21 03/10/21 Flexpen U-100 Insulin] ml lactulose 30 g PO QID #4000 ml 01/05/21 03/10/21 sennosides [senna] 8.6 mg PO BID #60 tab 01/05/21 03/10/21 spironolactone 100 mg PO DAILY #30 tab 01/05/21 03/10/21 lancets [Lancets, Super Thin] #200 ea 01/06/21 03/10/21 furosemide [Lasix] 40 mg PO DAILY 02/10/21 03/10/21 insulin glargine [Lantus Solostar 42 unit SUBCUT HS 02/10/21 03/10/21 U-100 Insulin] liraglutide [Victoza 2-Cain] 0.6 mg SUBCUT Q24H 02/10/21 03/10/21 prazosin 1 mg PO QHS 02/10/21 03/10/21 pregabalin [Lyrica] 50 mg PO BID 02/10/21 03/10/21 zonisamide 75 mg PO BID 02/10/21 03/10/21 lactulose 45 g PO Q2H PRN 03/11/21 03/11/21 Previous Rx's Medication Instructions Recorded acetaminophen [Tylenol] 650 mg PO Q6H PRN #60 tab 01/05/21 blood sugar diagnostic [Advanced #100 ea 01/05/21 Gluc Meter Test Strip] blood-glucose meter #1 ea 01/05/21 insulin aspart U-100 [Novolog 12 unit SUBCUT 0800,1200,1700 #15 01/05/21 Flexpen U-100 Insulin] ml lactulose 30 g PO QID #4000 ml 01/05/21 sennosides [senna] 8.6 mg PO BID #60 tab 01/05/21 spironolactone 100 mg PO DAILY #30 tab 01/05/21 lancets [Lancets, Super Thin] #200 ea 01/06/21 Allergies Allergy/AdvReac Type Severity Reaction Status Date / Time citalopram Allergy Unknown Unverified 03/10/21 22:32 codeine Allergy Unknown Unverified 05/26/21 22:32 interferon beta-1a Allergy Unknown Unverified 03/10/21 22:32 morphine Allergy Unknown Unverified 03/10/21 22:32 peginterferon maral-2a Allergy Unknown Unverified 03/10/21 22:32 General RODRIGO: 2 Review of Systems <Camilo Bernardo MD - Last Filed: 03/10/21 22:39> All systems reviewed & are unremarkable except as noted in HPI and below Constitutional Constitutional: Denies chills, Denies fever(s) and Denies weakness Cardiovascular Cardiovascular: Denies chest pain and Denies dyspnea Respiratory Respiratory: Denies cough and Denies dyspnea Gastrointestinal Gastrointestinal: Denies vomiting Genitourinary Genitourinary: Denies dysuria Musculoskeletal Musculoskeletal: Denies joint swelling Integumentary/Breasts Skin/Breast: Denies rash Neurologic Neurologic: Denies weakness PFSH <Camilo Bernardo MD - Last Filed: 03/10/21 22:39> Medical History (Updated 03/11/21 @ 01:15 by Artemio Kaur DO) Acute pain of both shoulders Alcohol abuse, in remission Alcoholic cirrhosis of liver with ascites Anemia combination of hemolysis, iron deficiency, anemia of chronic disease, blood loss. 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 Obesity Old lacunar stroke without late effect right frontal and left parietal lobe lacunar infarcts on MRI brain from 04/2020 Palliative care patient Psoriasis Psoriatic arthritis Squamous cell carcinoma Streptococcal sepsis with septic left knee [place]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 Social History (Updated 02/13/21 @ 13:38 by Alejandra Mcdonald MD) Smoking/Tobacco Use Status: Never Smoking risk assessment performed?: Yes Alcohol Intake: former Substance use type: former substance user and crack/cocaine Caregiver/Support person: Yes Household members: caregiver Housing: assisted living facility Communication Needs: Hard of Hearing and Corrective Lenses Education Level: high school Do you need help understanding health information?: Always current occupation: disabled vet Pets and animals: No Current gender identity: male How often do you talk on the phone with friends or family?: three or more times per week How often do you get together with friends or relatives?: never Panel score (0-1 are the most socially isolated patients): 1 What type of physical activity do you participate in: sedentary lifestyle and wheelchair-bound Special johnny needs: No Seatbelt use: sometimes Water heater temp set <120 deg: Yes Working smoke detector in home: Yes Fire extinguisher in home: Yes Do you feel safe at home: Yes Additional Social history: 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 He has lived at [facility] assisted living since February 2020. His health care agent is his brother, Rich, who lives in [place]. Trey's most recent admission to an inpatient hospital was due him hallucinating and trembling, associated with his alcoholism. He was brought [place] [facility] by the [place] police department. Since he's been living at [facility], he's been sober. He is status post an AKA of his left leg. He says this began with an infection from a TKR. He admits that some months of his life are hard for him to remember. He is a vague historian. He is hoping to get a prosthesis fit and then move back to [facility] near his brother. [facility]. Covid-19 has slowed down the process. Exam <Camilo Bernardo MD - Last Filed: 03/10/21 22:39> Const General: no acute distress Orientation: alert [facility] Head: normal to inspection Ears: external ears normal General nose exam: external nose normal Mouth: moist mucous membranes Eyes General: appearance normal, both eyes and all related structures Neck Neck: normal visual inspection Resp Effort & Inspection: normal respiratory effort and able to speak in complete sentences Cardio Rate: regular rate GI Palpation: soft Skin General skin exam: no rashes or lesions noted Neuro General: patient alert Extrem General: normal to inspection Psych Mental Status: mental status grossly normal Sign Out <Camilo Bernardo MD - Last Filed: 03/10/21 22:39> Sign Out Data: Sign Out Comment: cirrhosis, recent abnormal CT (see note) and sent to [facility] due to no beds elsewhere, states was treated with iv antibiotics and discharged. Returns here tonight for epigstric pain, nausea, and worsening hallucinations, supposed to get lactulose and hasn't had BM in 3 days. Labs, ct head and abdomen/pelvis pending Last updated by Camilo Bernardo MD at 03/10/21 22:41
--- NOTE | 2021-03-10 22:30 | RT.EKG_ITS ---
APPROVED REPORT Exam: Resting ECG Reason for Exam: epigastric pain Patient Location: E HR:64 bpm ECG Measurements Heart Rate 64 AXIS MN 176 P 0 QRSd 126 QRS -47 QT 428 T 68 QTc 442 Conclusion Sinus rhythm...normal P axis, V-rate 60- 99
[2021-03-10 22:32] LABS: Lactate 1.9 mmol/L (0.6-1.4)
[2021-03-10] MEDS: Ondansetron 4 MG/2 ML VIAL IVP (22:37)
[2021-03-10 22:41] LABS: Abs Immature Grans 0.01 10^3/uL (0.0-0.06); Absolute Basophil Count 0.01 10^3/uL (0.0-0.2); Absolute Eosinophil Count 0.18 10^3/uL (0.0-0.7); Absolute Lymphocyte Count 0.95 10^3/uL (1.2-3.4); Absolute Monocyte Count 0.53 10^3/uL (0.1-0.8); Absolute Neutrophil Count 2.61 10^3/uL (1.2-6.7); Basophils % 0.2; Eosinophils % 4.2; HCT 35.9 % (40.0-50.0); HGB 11.8 g/dL (13.5-17.5); Immature Grans % 0.2; Lymphocytes % 22.1; MCH 32.2 pg (27.0-33.0); MCHC 32.9 % (32.0-36.0); MCV 98.1 fL (80-95); MPV 10.6 fL (8.0-11.0); Monocytes % 12.4; Neutrophils % 60.9; Nucleated RBC 0 %; Platelet Count 107 10^3/uL (130-400); RBC 3.66 10^6/uL (4.36-5.78); RDW 15.9 % (11.8-14.1); RDW-SD 57.4 fL; WBC 4.29 10^3/uL (4.4-10.8)
[2021-03-10 22:47] LABS: Ammonia 204 umol/L (11-32)
[2021-03-10 22:51] LABS: Lipase 108 U/L (73-393)
[2021-03-10 22:54] LABS: INR 1.1 (0.9-1.1); PTT Activated 26.5 sec (21.0-27.5); Prothrombin Time 11.3 sec (9.3-11.0)
[2021-03-10 22:55] LABS: ALT 31 U/L (16-63); AST 37 U/L (15-37); Albumin 2.5 g/dL (3.4-5.0); Alkaline Phosphatase 185 U/L (46-116); Anion Gap 3.2 mmol/L (3-11); BUN 15 mg/dL (7-18); Bilirubin, Direct 0.4 mg/dL (0.0-0.2); CO2 31.8 mmol/L (21.0-32.0); Calcium 8.7 mg/dL (8.5-10.1); Chloride 105 mmol/L (98-107); Glucose 202 mg/dL (74-106); Magnesium 1.8 mg/dL (1.8-2.4); Potassium 4.5 mmol/L (3.5-5.1); Sodium 140 mmol/L (136-145); Total Protein 6.4 g/dL (6.4-8.2)
[2021-03-10 22:57] LABS: Troponin I < 0.05 ng/mL (<0.06)
[2021-03-10 23:07] LABS: ETHANOL BLOOD < 3.0 mg/dL (<3)
--- NOTE | 2021-03-10 23:14 | DI.CT_ITS ---
Exam(s) CT HEAD WO EXAM: CT HEAD WO CLINICAL HISTORY: hallucinations. TECHNIQUE: Imaging Protocol: Axial computed tomography images with coronal and sagittal reformatted images were created and reviewed COMPARISON: CT CT HEAD WO from 01/02/2021 FINDINGS: There are no skull fractures. Mucosal thickening is noted in the sphenoid sinus. This was previous ly present. There is no evidence of intracranial hemorrhage, mass effect, or shift of midline structures. There are no extra-axial fluid collections. The ventricles are not enlarged or shifted and there is no blo od within the ventricular system nor within the basal cisterns. There is some bilateral periventricular hypodensity consistent with chronic small vessel disease. IMPRESSION: No acute intracranial findings on this noninfused CT scan of the brain. Chronic small-vessel white matter ischemic changes in the periventricular white matter noted. If cli nically indicated follow-up MRI can be performed. RADIATION DOSE DELIVERED: 779.2mGy.cm Total DLP DATA REPOSITORY: All CT scans at this facility are submitted to the National Radiology Data Registry (NRDR) Dose Index Registry (DIR) with the [employer] (ACR). RADIATION OPTIMIZATION: All CT scans at this facility use at least one of these dose optimization te chniques: automated exposure control; mA and/or kV adjustment per patient size (includes targeted exa ms where dose is matched to clinical indication); or iterative reconstruction.
[2021-03-10] MEDS: Normal Saline Flush 10 ML SYR IVP (23:27)
[2021-03-10] MEDS: Normal Saline - Diluent 50 ML VIAL IV (23:28)
[2021-03-10] MEDS: Omnipaque 350 MG/ML 100 ML BTL IJ (23:28)
--- NOTE | 2021-03-10 23:29 | DI.CT_ITS ---
Exam(s) CT ABDOMEN PELVIS W EXAM: CT ABDOMEN PELVIS W CLINICAL HISTORY: nausea, abdomen pain. TECHNIQUE: Imaging Protocol: Axial computed tomography images with coronal and sagittal reformatted images were created and reviewed CONTRAST MATERIAL: Intravenous: Omnipaque 100cc Oral: None COMPARISON: CT CT ABDOMEN PELVIS W from 02/10/2021 FINDINGS: VISUALIZED LUNG BASES: No nodules nor pleural effusions evident. ABDOMEN: There is a moderate amount of ascites again evident. There are prominent periesophageal varices, con sistent with portal venous hypertension. LIVER: Cirrhotic appearing liver again noted. No obvious mass therein. GALLBLADDER/BILIARY: Cholelithiasis noted. Gallbladder wall thickness upper normal. CBD is not dila kaya. PANCREAS: There is an 11 x 12 millimeter hypodensity in the uncinate process of the pancreas again no kaya which is probably neoplastic. No other pancreatic lesions seen. Pancreatic duct upper normal si ze. SPLEEN: Splenomegaly again noted. No intrasplenic masses. Portal venous hypertension varices. ADRENALS: There are no significant adrenal masses. KIDNEYS:Right kidney unremarkable. There is a small nonobstructive calculus in the lower pole of the left kidney measuring 2 millimeters. No renal masses nor cysts evident.. ABDOMINAL AORTA: Abdominal aorta is not enlarged. LYMPH NODES:There is no retroperitineal nor paraaortic adenopathy. ABDOMINAL WALL: No evidence of significant anterior abdominal wall hernia. GI: There is no evidence of bowel obstruction, free air, nor abscess. PELVIS: GI: No evidence of appendicitis.No evidence of sigmoid diverticulitis. LYMPH NODES: There is no intrapelvic nor inguinal adenopathy. REPRODUCTIVE: Prostate is not enlarged. URINARY BLADDER: No calculi nor obvious masses evident OSSEOUS: No significant osseous lesions. Schmorl's node invagination in the superior endplate of L4 vertebral body which is unchanged from pre vious. IMPRESSION: 1. Advanced hepatic cirrhosis with splenomegaly and portal hypertension and varices. There are promi nent paraesophageal varices again noted. No evidence of hepatic mass. 2. Cholelithiasis is noted. No obvious acute cholecystitis. Biliary tree is not dilated. 3. 12 x 11 millimeter cystic mass in the uncinate process of the pancreas is again noted, unchanged. Pancreatic duct is not dilated. RADIATION DOSE DELIVERED: 1,474.42mGy.cm Total DLP DATA REPOSITORY: All CT scans at this facility are submitted to the National Radiology Data Registry (NRDR) Dose Index Registry (DIR) with the [employer] (ACR). RADIATION OPTIMIZATION: All CT scans at this facility use at least one of these dose optimization te chniques: automated exposure control; mA and/or kV adjustment per patient size (includes targeted exa ms where dose is matched to clinical indication); or iterative reconstruction.
[2021-03-10 23:52] LABS: Source Nasal/Nares
[2021-03-11] VITALS (7 sets, daily range): BP systolic 98–149; BP diastolic 54–90; PULSE 60–79; RESP 14–20; TEMP 35.9–37.4; O2SAT 93–98
--- NOTE | 2021-03-11 00:19 | DI.VRAD_ITS ---
PROCEDURE INFORMATION: Exam: CT Head Without Contrast Exam date and time: 03/10/2021 10:33 PM Age: 65 years old Clinical indication: Other: Hallucinations TECHNIQUE: Imaging protocol: Computed tomography of the head without contrast. Radiation optimization: All CT scans at this facility use at least one of these dose optimization techniques: automated exposure control; mA and/or kV adjustment per patient size (includes targeted exams where dose is matched to clinical indication); or iterative reconstruction. COMPARISON: CT HEAD WO 01/02/2021 4:55 AM FINDINGS: Brain: There is diffuse cerebral atrophy concordant with the patient's age. Chronic small vessel deep white matter ischemic disease is suggested by areas of patchy white matter low attenuation. No intracranial hemorrhage. No acute large territory CVA. No mass. No acute edema. No acute intracranial abnormality. Cerebral ventricles: No ventriculomegaly. Paranasal sinuses: Mucoperiosteal thickening of the sphenoid sinus with chronic appearance. There is also mild chronic maxillary and ethmoid sinus air cell disease.. No fluid levels. Mastoid air cells: Visualized mastoid air cells are well aerated. Bones/joints: Unremarkable. No acute fracture. Soft tissues: Unremarkable. IMPRESSION: 1. Age-related atrophy and chronic small vessel deep white matter ischemic disease. 2. No acute intracranial pathology. 3. Stable exam since 01/02/2021. Dictated and Authenticated by: Perez Mead MD. Ordering:SIMI Page MD
[2021-03-11] MEDS: Lactulose 20 GM/30 ML CUP PO (00:27)
[2021-03-11] MEDS: Normal Saline 1,000 ML 500 ML IV (00:49)
--- NOTE | 2021-03-11 00:56 | DI.VRAD_ITS ---
PROCEDURE INFORMATION: Exam: CT Abdomen And Pelvis With Contrast Exam date and time: 03/10/2021 10:33 PM Age: 65 years old Clinical indication: Abdominal pain; Generalized; Patient HX: Nausea TECHNIQUE: Imaging protocol: Computed tomography of the abdomen and pelvis with contrast. Radiation optimization: All CT scans at this facility use at least one of these dose optimization techniques: automated exposure control; mA and/or kV adjustment per patient size (includes targeted exams where dose is matched to clinical indication); or iterative reconstruction. Contrast material: [id number]; Contrast volume: 100 ml; Contrast route: INTRAVENOUS (IV); COMPARISON: CT ABDOMEN PELVIS W 02/10/2021 11:50 AM FINDINGS: Heart: Cardiomegaly. Liver: Liver is relatively small with lobulated contour.There is diffuse decrease in hepatic parenchymal density, consistent with mild fatty infiltration. Gallbladder and bile ducts: Gallstones. No gallbladder wall thickening. No biliary ductal dilatation. Pancreas: No change in 12 mm lesion in uncinate process of the pancreas. Pancreatic atrophy. Main pancreatic duct top-normal in caliber. Spleen: Splenomegaly. Adrenal glands: Normal adrenal glands. Kidneys and ureters: Normal. No hydronephrosis. Stomach and bowel: Fairly extensive fat stranding remains about much of the colon. No obstruction. Gastric rugal prominence. Appendix: Normal appendix. Intraperitoneal space: No free intraperitoneal gas. Moderate ascites. Vasculature: No aortic aneurysm or dissection. Extensive abdominal and periesophageal varices. No intraluminal gas is demonstrated presently in portal venous tributaries. Lymph nodes: Unremarkable. No enlarged lymph nodes. Urinary bladder: Unremarkable as visualized. Reproductive: Unremarkable as visualized. Bones/joints: The spine demonstrates moderate degenerative changes at multiple levels. Soft tissues: Unremarkable. IMPRESSION: 1. No bowel obstruction. 2. Extensive fat stranding about the colon could be secondary to colitis or 3rd spacing of fluid. 3. Advanced cirrhosis complicated by development of portal hypertension, manifest with splenomegaly, varices and ascites. 4. Cholelithiasis. 5. Gastric rugal prominence. Correlate clinically for the presence of gastritis. 6. No change in lesion arising in uncinate process of the pancreas. Dictated and Authenticated by: Manohar Solorio MD. Ordering:SIMI Page MD
[2021-03-11 01:57] LABS: Troponin I < 0.05 ng/mL (<0.06)
[2021-03-11 02:11] LABS: Bilirubin Negative (Negative); Blood Negative (Negative); Clarity Clear (Clear); Glucose Negative (Negative); Ketones Negative (Negative); Leukocyte Esterase Negative (Negative); Nitrite Negative (Negative); Specific Gravity 1.015 (1.005-1.025); pH 7.5 (5-8)
--- NOTE | 2021-03-11 07:04 | W.PM.HP.N ---
Date of service: 03/11/21 Time of Service: 07:04 Assessment and Plan Assessment and plan (1) Increased ammonia level: Status: Acute Assessment and plan: This may be due to him not receiving the lactulose as prescribed although it could be that his disease process is worsening. We will try to clarify with the [facility] about the lactulose. (2) Hepatic encephalopathy: Status: Acute Assessment and plan: His ammonia level was quite high on admission. We will recheck that this morning. His meds have been reviewed and have been ordered. (3) Cirrhosis of liver without ascites: Status: Chronic History of Present Illness History of Present Illness Chief Complaint: Altered mental status Narrative: This 65-year-old male is currently living at [facility], a modified assisted living facility. He has a number of chronic medical problems include diabetes mellitus, advanced cirrhosis, history of hepatic encephalopathy, cholelithiasis and a tumor in the pancreas. He states that he was not getting his lactulose as prescribed at the [facility]. He does not think he has had this medicine for last 3 to 4 days. He was brought to the emergency department because of altered mental status and hallucinations. He had extensive evaluation in the emergency department and his ammonia level was found to be 204. His other labs are stable. I discussed situation with the emergency physician and they will night. Patient says he feels a bit better now. He has wanted aggressive treatment based on conversation with the palliative care team. I do not know if he is currently seeing a tin flopper or community associate. I asked him who his liver doctor was and he did not know. He said that his alcohol problem caused his cirrhosis but he is not drinking currently. He said his plan is to stay in [place] for another month and then go to an apartment. His ammonia level has not been this high in the past that I can see. Review of Systems Constitutional Constitutional: Denies difficulty sleeping, Denies fever(s), Denies frequent falls, Denies headache(s), Denies lethargy and Denies weakness ENT Ears, Nose, Mouth, and Throat: Denies headache(s) Cardiovascular Cardiovascular: Denies chest pain and Denies dyspnea Respiratory Respiratory: Denies cough and Denies dyspnea Gastrointestinal Gastrointestinal: Denies change in stool character, Denies constipation, Reports nausea and Denies vomiting Genitourinary Genitourinary: Denies difficulty urinating and Denies urinary incontinence Neurologic Neurologic: Reports confusion, Denies frequent falls, Denies headache(s), Denies lack of coordination, Reports sensory deficit and Denies weakness Psychiatric Psychiatric: Reports confusion [facility] Medical History (Updated 03/11/21 @ 01:15 by Artemio Kaur DO) Acute pain of both shoulders Alcohol abuse, in remission Alcoholic cirrhosis of liver with ascites Anemia combination of hemolysis, iron deficiency, anemia of chronic disease, blood loss. 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 Obesity Old lacunar stroke without late effect right frontal and left parietal lobe lacunar infarcts on MRI brain from 04/2020 Palliative care patient Psoriasis Psoriatic arthritis Squamous cell carcinoma Streptococcal sepsis with septic left knee [place]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 Social History (Updated 02/13/21 @ 13:38 by Alejandra Mcdonald MD) Smoking/Tobacco Use Status: Never Smoking risk assessment performed?: Yes Alcohol Intake: former Substance use type: former substance user and crack/cocaine Caregiver/Support person: Yes Household members: caregiver Housing: assisted living facility Communication Needs: Hard of Hearing and Corrective Lenses Education Level: high school Do you need help understanding health information?: Always current occupation: disabled vet Pets and animals: No Current gender identity: male How often do you talk on the phone with friends or family?: three or more times per week How often do you get together with friends or relatives?: never Panel score (0-1 are the most socially isolated patients): 1 What type of physical activity do you participate in: sedentary lifestyle and wheelchair-bound Special johnny needs: No Seatbelt use: sometimes Water heater temp set <120 deg: Yes Working smoke detector in home: Yes Fire extinguisher in home: Yes Do you feel safe at home: Yes Additional Social history: 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 He has lived at [facility] assisted living since February 2020. His health care agent is his brother, Rich, who lives in [place]. Trey's most recent admission to an inpatient hospital was due him hallucinating and trembling, associated with his alcoholism. [place] [facility] [place]. Since he's been living at [facility], he's been sober. He is status post an AKA of his left leg. He says this began with an infection from a TKR. He admits that some months of his life are hard for him to remember. He is a vague historian. He is hoping to get a prosthesis fit and then move back to [place] near his brother. [facility]. Covid-19 has slowed down the process. Meds Allergies and Home Medications Allergies Allergy/AdvReac Type Severity Reaction Status Date / Time citalopram Allergy Unknown Unverified 03/10/21 22:32 codeine Allergy Unknown Unverified 03/10/21 22:32 interferon beta-1a Allergy Unknown Unverified 03/10/21 22:32 morphine Allergy Unknown Unverified 03/10/21 22:32 peginterferon maral-2a Allergy Unknown Unverified 03/10/21 22:32 Home Medications Medication Instructions Recorded Confirmed Type Xifaxan 550 mg PO BID 01/02/21 03/10/21 History buspirone 7.5 mg PO DIRECTED 01/02/21 03/11/21 History docusate sodium [Colace] 100 mg PO BID 01/02/21 03/10/21 History famotidine 10 mg PO DAILY 01/02/21 03/10/21 History melatonin 3 mg PO HS 01/02/21 03/10/21 History multivitamin 1 tab PO DAILY 01/02/21 03/10/21 History nystatin 1 applic TOPICAL BID 01/02/21 03/10/21 History omeprazole 20 mg PO BID 01/02/21 03/10/21 History ondansetron HCl [Zofran] 4 mg PO Q6H PRN 01/02/21 03/10/21 History polyethylene glycol 3350 [Miralax] 17 g PO BID PRN 01/02/21 03/10/21 History propranolol 20 mg PO BID 01/02/21 03/10/21 History tramadol 50 mg PO BID 01/02/21 03/10/21 History trazodone 50 mg PO HS 01/02/21 03/10/21 History venlafaxine 75 mg PO QHS 01/02/21 03/10/21 History acetaminophen [Tylenol] 650 mg PO Q6H PRN #60 tab 01/05/21 03/10/21 Rx blood sugar diagnostic [Advanced #100 ea 01/05/21 03/10/21 Rx Gluc Meter Test Strip] blood-glucose meter #1 ea 01/05/21 03/10/21 Rx insulin aspart U-100 [Novolog 12 unit SUBCUT 0800,1200,1700 #15 01/05/21 03/10/21 Rx Flexpen U-100 Insulin] ml lactulose 30 g PO QID #4000 ml 01/05/21 03/10/21 Rx sennosides [senna] 8.6 mg PO BID #60 tab 01/05/21 03/10/21 Rx spironolactone 100 mg PO DAILY #30 tab 01/05/21 03/10/21 Rx lancets [Lancets, Super Thin] #200 ea 01/06/21 03/10/21 Rx furosemide [Lasix] 40 mg PO DAILY 02/10/21 03/10/21 History insulin glargine [Lantus Solostar 42 unit SUBCUT HS 02/10/21 03/10/21 History U-100 Insulin] liraglutide [Victoza 2-Cain] 0.6 mg SUBCUT Q24H 02/10/21 03/10/21 History prazosin 1 mg PO QHS 02/10/21 03/10/21 History pregabalin [Lyrica] 50 mg PO BID 02/10/21 03/10/21 History zonisamide 75 mg PO BID 02/10/21 03/10/21 History lactulose 45 g PO Q2H PRN 03/11/21 03/11/21 History Exam Const General: cooperative, comfortable, no acute distress and not in acute distress Nutritional Appearance: obese Orientation: oriented to person and oriented to place Other: He told me he thought today was Monday but is actually . He knows that this is feb, 2021 I thought it was the . He can name the current and last 2 presidents but could not remember any other presidents. He could only do 7 from 100 giving the answer 93 but did not do any others. HENMT Head: normal to inspection and normocephalic Mouth: oral mucosae normal and moist mucous membranes Eyes Conjunctivae: conjunctivae normal Sclera: sclerae normal EOM: EOM intact bilaterally Neck Neck: normal visual inspection, no lymphadenopathy and no JVD Thyroid: thyroid normal Resp Effort & Inspection: normal respiratory effort Auscultation: no rales, no rhonchi and no wheezes Cardio Rate: regular rate Heart Sounds: no gallops and no murmurs GI Inspection: normal to inspection and non-distended Palpation: no hepatosplenomegaly Neuro General: patient awake Speech: speech normal Extrem General: normal to inspection Right lower extremity: no edema Left lower extremity: no edema Results Labs Result diagrams: 03/10/21 22:26 03/10/21 22:26 Labs: Laboratory Results - last 24 hr 03/10/21 03/10/21 03/10/21 22:26 22:26 22:26 WBC RBC Hgb Hct MCV MCH MCHC RDW Plt Count MPV Immature Gran % Neutrophils % Lymphocytes % Monocytes % Eosinophils % Basophils % Nucleated RBC % Absolute Neutrophils Absolute Lymphocytes Absolute Monocytes Absolute Eosinophils Absolute Basophils PT INR APTT VBG Lactate 1.9 H Sodium 140 Potassium 4.5 Chloride 105 Carbon Dioxide 31.8 Anion Gap 3.2 BUN 15 Creatinine 1.0 Estimated GFR/1.73 m2 >= 60.00 Glucose 202 H Calcium 8.7 Magnesium 1.8 Total Bilirubin 1.0 Conjugated Bilirubin 0.4 H AST 37 ALT 31 Alkaline Phosphatase 185 H Ammonia 204 H Troponin I Total Protein 6.4 Albumin 2.5 L Lipase Urine Color Urine Clarity Urine pH Ur Specific Helen Urine Protein Urine Ketones Urine Blood Urine Nitrite Urine Bilirubin Urine Urobilinogen Ur Leukocyte Esterase Urine Glucose Ethyl Alcohol COVID-19 Source 03/10/21 03/10/21 03/10/21 22:26 22:26 22:26 WBC 4.29 L RBC 3.66 L Hgb 11.8 L Hct 35.9 L MCV 98.1 H MCH 32.2 MCHC 32.9 RDW 15.9 H Plt Count 107 L MPV 10.6 Immature Gran % 0.2 Neutrophils % 60.9 Lymphocytes % 22.1 Monocytes % 12.4 Eosinophils % 4.2 Basophils % 0.2 Nucleated RBC % 0 Absolute Neutrophils 2.61 Absolute Lymphocytes 0.95 L Absolute Monocytes 0.53 Absolute Eosinophils 0.18 Absolute Basophils 0.01 PT 11.3 H INR 1.1 APTT 26.5 VBG Lactate Sodium Potassium Chloride Carbon Dioxide Anion Gap BUN Creatinine Estimated GFR/1.73 m2 Glucose Calcium Magnesium Total Bilirubin Conjugated Bilirubin AST ALT Alkaline Phosphatase Ammonia Troponin I Total Protein Albumin Lipase 108 Urine Color Urine Clarity Urine pH Ur Specific Helen Urine Protein Urine Ketones Urine Blood Urine Nitrite Urine Bilirubin Urine Urobilinogen Ur Leukocyte Esterase Urine Glucose Ethyl Alcohol < 3.0 COVID-19 Source 03/10/21 03/10/21 03/11/21 22:26 23:45 01:33 WBC RBC Hgb Hct MCV MCH MCHC RDW Plt Count MPV Immature Gran % Neutrophils % Lymphocytes % Monocytes % Eosinophils % Basophils % Nucleated RBC % Absolute Neutrophils Absolute Lymphocytes Absolute Monocytes Absolute Eosinophils Absolute Basophils PT INR APTT VBG Lactate Sodium Potassium Chloride Carbon Dioxide Anion Gap BUN Creatinine Estimated GFR/1.73 m2 Glucose Calcium Magnesium Total Bilirubin Conjugated Bilirubin AST ALT Alkaline Phosphatase Ammonia Troponin I < 0.05 < 0.05 Total Protein Albumin Lipase Urine Color Urine Clarity Urine pH Ur Specific Helen Urine Protein Urine Ketones Urine Blood Urine Nitrite Urine Bilirubin Urine Urobilinogen Ur Leukocyte Esterase Urine Glucose Ethyl Alcohol COVID-19 Source Nasal/nares 03/11/21 02:00 WBC RBC Hgb Hct MCV MCH MCHC RDW Plt Count MPV Immature Gran % Neutrophils % Lymphocytes % Monocytes % Eosinophils % Basophils % Nucleated RBC % Absolute Neutrophils Absolute Lymphocytes Absolute Monocytes Absolute Eosinophils Absolute Basophils PT INR APTT VBG Lactate Sodium Potassium Chloride Carbon Dioxide Anion Gap BUN Creatinine Estimated GFR/1.73 m2 Glucose Calcium Magnesium Total Bilirubin Conjugated Bilirubin AST ALT Alkaline Phosphatase Ammonia Troponin I Total Protein Albumin Lipase Urine Color Yellow Urine Clarity Clear Urine pH 7.5 Ur Specific Helen 1.015 Urine Protein Negative Urine Ketones Negative Urine Blood Negative Urine Nitrite Negative Urine Bilirubin Negative Urine Urobilinogen 2.0 H Ur Leukocyte Esterase Negative Urine Glucose Negative Ethyl Alcohol COVID-19 Source Last Vital Signs Temp 37.4 C 03/11/21 02:22 Pulse 66 03/11/21 02:22 Resp 20 03/11/21 02:22 BP 116/73 03/11/21 02:22 Pulse Ox 97 03/11/21 02:22 COVID-19 Screening Have you, or household traveled for leisure in last 14 days?: No Had IN PERSON contact w/suspected or confirmed C-19 person: No
[2021-03-11] MEDS: Senna TAB 1 TAB PO ×2 (08:39→19:35)
[2021-03-11] MEDS: busPIRone 5 MG TAB 7.5 MG PO ×2 (08:39→11:41)
[2021-03-11] MEDS: Lactulose 20 GM/30 ML CUP 30 GM PO ×4 (08:39→19:34)
[2021-03-11] MEDS: Omeprazole 20 MG CAPCR PO ×2 (08:40→19:34)
[2021-03-11] MEDS: Rifaximin 550 MG TAB PO ×2 (08:40→19:34)
[2021-03-11] MEDS: Pregabalin 50 MG CAP PO ×2 (08:40→19:36)
[2021-03-11] MEDS: Spironolactone 50 MG TAB 100 MG PO (08:40)
[2021-03-11] MEDS: Docusate Sodium 100 MG CAP PO ×2 (08:40→19:36)
[2021-03-11] MEDS: Furosemide 40 MG TAB PO (08:40)
[2021-03-11 09:27] LABS: COVID-19 PCR Negative (Negative)
[2021-03-11 10:04] LABS: Absolute Basophil Count 0.02 10^3/uL (0.0-0.2); Absolute Eosinophil Count 0.17 10^3/uL (0.0-0.7); Absolute Lymphocyte Count 0.75 10^3/uL (1.2-3.4); Absolute Monocyte Count 0.43 10^3/uL (0.1-0.8); Absolute Neutrophil Count 2.24 10^3/uL (1.2-6.7); Basophils % 0.6; Eosinophils % 4.7; HCT 36.6 % (40.0-50.0); HGB 12.2 g/dL (13.5-17.5); Lymphocytes % 20.8; MCH 32.7 pg (27.0-33.0); MCHC 33.3 % (32.0-36.0); MCV 98.1 fL (80-95); Monocytes % 11.9; Nucleated RBC 0 %; Platelet Count 110 10^3/uL (130-400); RBC 3.73 10^6/uL (4.36-5.78); RDW 15.9 % (11.8-14.1); RDW-SD 57.3 fL; WBC 3.61 10^3/uL (4.4-10.8)
[2021-03-11 10:16] LABS: Anion Gap 5.5 mmol/L (3-11); BUN 12 mg/dL (7-18); CO2 28.5 mmol/L (21.0-32.0); Calcium 8.8 mg/dL (8.5-10.1); Chloride 106 mmol/L (98-107); Glucose 151 mg/dL (74-106); Potassium 4.5 mmol/L (3.5-5.1); Sodium 140 mmol/L (136-145)
[2021-03-11 10:20] LABS: Ammonia 83 umol/L (11-32)
[2021-03-11] MEDS: Zonisamide 25 MG CAP 75 MG PO ×2 (10:26→19:35)
--- NOTE | 2021-03-11 10:49 | INITIAL_ITS ---
- If Service Date Differs Date of service: 03/11/21 Time of Service: 10:49 Care Management Initial Assess REASON FOR HOSPITALIZATION:: Elevated Ammonia Level PAST MEDICAL HISTORY/PAST SURGICAL HISTORY:: Acute pain of both shoulders. Alcohol abuse, in remission. Alcoholic cirrhosis of liver with ascites. Anemia. combination of hemolysis, iron deficiency, anemia of chronic disease, blood loss. Anxiety. Arthritis. Asteatosis cutis. Cocaine dependence in remission. Depression. Diabetes type 2, uncontrolled. Encephalopathy. Esophageal varices. Goals of care, counseling/discussion. Hepatitis C. History of left above knee amputation. Hypertension. Infection of prosthetic left knee joint. recurrent. Lichen simplex chronicus. Living in assisted living. Low back pain. Neck pain. 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 Obesity. Old lacunar stroke without late effect. right frontal and left parietal lobe lacunar infarcts on MRI brain from 04/2020. Palliative care patient. Psoriasis. Psoriatic arthritis. Squamous cell carcinoma. Streptococcal sepsis. with septic left knee. of armed forces. Wheelchair bound. awaiting prothesis. Surgical History . History of arthroplasty of left knee. requiring explantation due to septic left knee. Hx of AKA (above knee amputation). left leg. due to complications of TKR. S/P AKA (above knee amputation) unilateral. Due to multiple infections in left knee prosthesis PREVIOUS FUNCTIONAL STATUS/SOCIAL/FAMILY SUPPORTS:: Perez is a who currently resides at [facility] in [place], [place]. His brother Rich, resides nearby and is supportive. Perez was admitted to [facility] in December, and CM supported [facility] service connection and transition of care for prescriptons. He is 50% service connected, 70% service connection required for terminal press operator SNF payment. Chasidy reports there are exceptions (CM to clarify with ASSISTANT EXECUTIVE HOUSEKEEPER) but unlikely Perez will qualify. He is not [facility] eligible. He has worked closely with Masha WOOD at [facility]. He is paying $2300 out of pocket at the [facility]. He is working towards progressing from W/C to ambulating with protesis as a goal; his new brace was filled by the [facility], coordinated by [facility]. His mother recently which he is struggling with. He has supports through the [facility] and requires assistance at [facility] with ADLs and med management. ADVANCE DIRECTIVES:: None on file at [facility]. Has patient been provided with info about the portal/API?: Yes Did the patient sign up for the portal?: No CODE STATUS:: Full Code INSURANCE COVERAGE / FINANCIAL ISSUES:: Medicare CURRENT HOME/COMMUNITY SERVICES/EQUIPMENT:: [facility]; level 3 assisted living facility. [facility] partially connected; CM [facility] [place]. RN: Julienne Smith [phone], [phone]. Masha WOOD, . PRIMARY CARE PHYSICIAN:: Tammie Woodward at [facility]. Dr. Portillo at [facility]. POTENTIAL DISCHARGE NEEDS:: Confirm prescription coverage through [facility], follow up appointments. PATIENT/FAMILY EDUCATION NEEDS:: Review discharge instructions, discuss [facility]. ANTICIPATED BARRIERS TO DISCHARGE:: None identified. TRANSPORTATION:: Via private vehicle with [facility]. PLAN:: Perez will return to [facility] when ready per MD. He will follow up with his PCP and plan of care as prescribed. CM will continue to follow and support discharge planning considerations.
[2021-03-11] MEDS: Propranolol 20 MG TAB PO ×2 (11:41→19:35)
[2021-03-11] MEDS: traMADol 50 MG TAB PO ×2 (11:41→19:36)
[2021-03-11] MEDS: Insulin Aspart 300 UNITS/3 ML PEN 12 UNITS SC (11:43)
[2021-03-11] MEDS: Venlafaxine 37.5 MG CAPCR 75 MG PO (19:34)
[2021-03-11] MEDS: Prazosin 1 MG CAP PO (19:35)
[2021-03-11] MEDS: Insulin Glargine 300 UNITS/3 ML PEN 42 UNITS SC (21:50)
[2021-03-11] MEDS: traZODone 50 MG TAB PO (21:51)
[2021-03-11] MEDS: Melatonin 3 MG TAB PO (21:51)
[2021-03-11] MEDS: Acetaminophen 325 MG TAB 650 MG PO (23:05)
[2021-03-12 07:03] LABS: Ammonia 78 umol/L (11-32)
[2021-03-12 07:14] LABS: ALT 31 U/L (16-63); AST 41 U/L (15-37); Albumin 2.4 g/dL (3.4-5.0); Alkaline Phosphatase 194 U/L (46-116); BUN 16 mg/dL (7-18); Bilirubin, Total 0.9 mg/dL (0.2-1.0); CREATININE 1.1 mg/dL (0.70-1.30); Calcium 8.8 mg/dL (8.5-10.1); Chloride 106 mmol/L (98-107); Glucose 146 mg/dL (74-106); Potassium 4.5 mmol/L (3.5-5.1); Sodium 141 mmol/L (136-145); Total Protein 6.4 g/dL (6.4-8.2)
[2021-03-12 07:24] LABS: Abs Immature Grans 0.01 10^3/uL (0.0-0.06); Absolute Basophil Count 0.01 10^3/uL (0.0-0.2); Absolute Eosinophil Count 0.11 10^3/uL (0.0-0.7); Basophils % 0.3; Eosinophils % 3.8; HCT 35.7 % (40.0-50.0); Immature Grans % 0.3; Lymphocytes % 23.9; MCHC 33.6 % (32.0-36.0); MCV 98.1 fL (80-95); MPV 11.7 fL (8.0-11.0); Monocytes % 13.7; Nucleated RBC 0 %; RBC 3.64 10^6/uL (4.36-5.78); RDW 15.9 % (11.8-14.1); RDW-SD 56.9 fL; WBC 2.93 10^3/uL (4.4-10.8)
[2021-03-12 07:56] LABS: Diff Comment Diff Reviewed; RBC Morphology Normal
[2021-03-12] MEDS: Zonisamide 25 MG CAP 75 MG PO (08:02)
[2021-03-12] MEDS: Pregabalin 50 MG CAP PO (08:02)
[2021-03-12] MEDS: Rifaximin 550 MG TAB PO (08:02)
[2021-03-12] MEDS: busPIRone 5 MG TAB 7.5 MG PO (08:03)
[2021-03-12] MEDS: Famotidine 20 MG TAB 10 MG PO (08:03)
[2021-03-12] MEDS: Docusate Sodium 100 MG CAP PO (08:03)
[2021-03-12] MEDS: Spironolactone 50 MG TAB 100 MG PO (08:03)
[2021-03-12] MEDS: Propranolol 20 MG TAB PO (08:03)
[2021-03-12] MEDS: Omeprazole 20 MG CAPCR PO (08:03)
[2021-03-12] MEDS: Senna TAB 1 TAB PO (08:03)
[2021-03-12] MEDS: Furosemide 40 MG TAB PO (08:03)
[2021-03-12] MEDS: Insulin Aspart 300 UNITS/3 ML PEN 12 UNITS SC (08:04)
[2021-03-12] MEDS: traMADol 50 MG TAB PO (08:04)
[2021-03-12 08:11] VITALS: BP 118/80; PULSE 68; RESP 18; TEMP 37.3; O2SAT 94
--- NOTE | 2021-03-12 09:43 | W.PM.DS.N ---
Date of service: 03/12/21 Time of Service: 09:44 DS: Diagnosis Discharge Diagnosis (1) Increased ammonia level: Start date: 03/12/21 Start time: 09:45 Status: Resolved Asessment and Plan: Patient was not receiving lactulose as prescribed due to mix up with medication [facility] 30 mg QID with prn dosing. Our pharmacy will supply 35 doses so that CI will have time to product picker medication from the [place] and patient will receive ample amounts to avoid hepatic encephalopathy. His ammonia level on admission was 204, today 78, his mentation is clear AAOx3 and he is happy to be returning to . He denies CP, SOB, N/V/D. (2) Hepatic encephalopathy: Start date: 03/12/21 Start time: 09:59 Status: Resolved Asessment and Plan: Due to above (3) Psoriasis: Start date: 03/12/21 Start time: 10:00 Status: Acute Asessment and Plan: to left side of flank with smaller areas to ribs, will give betamethasone cream for treatment. (4) Cirrhosis of liver without ascites: Start date: 03/12/21 Start time: 10:00 Status: Chronic Asessment and Plan: discussed with Dr. mccartney Discharge Plan Disposition Patient Disposition: [facility] Condition: Good Discharge Details Reason For Visit: ELEVATED AMMONIA LEVEL Admit Date/Time: 03/11/21 01:21 Admit Provider: Yves Marcano Attending Provider: Yves Marcano [facility] Hospital Course: This 65-year-old male is currently living at [facility], a modified assisted living facility. He has a number of chronic medical problems include diabetes mellitus, advanced cirrhosis, history of hepatic encephalopathy, cholelithiasis and a tumor in the pancreas. He states that he was not getting his lactulose as prescribed at the [facility] on admission. He does not think he has had this medicine for last 3 to 4 days. He was brought to the emergency department because of altered mental status and hallucinations. He had extensive evaluation in the emergency department and his ammonia level was found to be 204. All other labs are stable. He was admitted to /S for further management. Today his ammonia level is 78. He has clear mentation. AAOx3. It sounds as though there was a medication mix up with the lactulose as [facility] and [facility] was not [facility]. He feels better and is happy to be returning to . We will supply him with 7 days worth of lactulose with prn dosing. He also has psoriasis flare up to left flank area with little spots to under breasts. He denies CP, SOB, n/V/D. Home Meds and New Rx's Prescriptions: New betamethasone dipropionate 0.05 % Cream 1 applic topical BID Qty: 15 RF: 0 betamethasone dipropionate 0.05 % Cream 1 applic topical BID Qty: 45 RF: 0 lactulose 20 gram/30 mL Solution 30 g PO QID Qty: 1200 RF: 0 lactulose 20 gram/30 mL Solution 30 g PO Q2H PRN PRN (Reason: Constipation) Qty: 1200 RF: 0 Continued multivitamin Tablet 1 tab PO DAILY RF: 0 venlafaxine 75 mg Capsule,Extended Release 24hr 75 mg PO QHS RF: 0 famotidine 10 mg Tablet 10 mg PO DAILY RF: 0 trazodone 50 mg Tablet 50 mg PO HS RF: 0 nystatin 100,000 unit/gram Ointment 1 applic TOPICAL BID RF: 0 ondansetron HCl [Zofran] 4 mg Tablet 4 mg PO Q6H PRNRF: 0 melatonin 3 mg Tablet 3 mg PO HS RF: 0 tramadol 50 mg Tablet 50 mg PO BID RF: 0 docusate sodium [Colace] 100 mg Capsule 100 mg PO BID RF: 0 omeprazole 20 mg Capsule,Delayed Release(Dr/Ec) 20 mg PO BID RF: 0 polyethylene glycol 3350 [Miralax] 17 gram/dose Powder 17 g PO BID PRNRF: 0 propranolol 20 mg Tablet 20 mg PO BID RF: 0 buspirone 15 mg Tablet 7.5 mg PO DIRECTED RF: 0 Xifaxan 550 mg Tablet 550 mg PO BID RF: 0 spironolactone 50 mg Tablet 100 mg PO DAILY Qty: 30 RF: 0 insulin aspart U-100 [Novolog Flexpen U-100 Insulin] 100 unit/mL (3 mL) Insulin Pen 12 unit subcut 0800,1200,1700 Qty: 15 RF: 0 sennosides [senna] 8.6 mg Tablet 8.6 mg PO BID Qty: 60 RF: 0 acetaminophen [Tylenol] 325 mg Tablet 650 mg PO Q6H PRNQty: 60 RF: 0 lactulose 10 gram/15 mL (15 mL) Solution 30 g PO QID Qty: 4000 RF: 0 (DME) blood-glucose meter Misc See Rx Instructions .ROUTE .MEDSUPPLY Qty: 1 RF: 0 (DME) Advanced Gluc Meter Test Strip Strip See Rx Instructions .ROUTE .MEDSUPPLY Qty: 100 RF: 0 (DME) lancets [Lancets, Super Thin] Misc See Rx Instructions .ROUTE .MEDSUPPLY Qty: 200 RF: 0 furosemide [Lasix] 40 mg Tablet 40 mg PO DAILY RF: 0 prazosin 1 mg Capsule 1 mg PO QHS RF: 0 pregabalin [Lyrica] 50 mg Capsule 50 mg PO BID RF: 0 Victoza 2-Cain 0.6 mg/0.1 mL (18 mg/3 mL) Pen Injector 0.6 mg SUBCUT Q24H RF: 0 Lantus Solostar U-100 Insulin 100 unit/mL (3 mL) insulin pen 42 unit subcut HS RF: 0 zonisamide 25 mg Capsule 75 mg PO BID RF: 0 lactulose 10 gram/15 mL Solution 30 g PO Q2H PRN (Reason: Constipation) RF: 0 Discharge Instructions Instructions: Lactulose (By mouth), Psoriasis (DC), Hepatic Encephalopathy (DC) Additional Instructions: Take lactulose four times a day and as needed with a goal of having at least 3 soft to loose bowel movements daily Follow up with PCP as needed use cream on psoriasis Stand Alone Forms: Nursing Discharge Form Referrals: Tammie Woodward [Primary Care Provider] - (Follow up as needed.) Activity:: Activity as Tolerated Equipment/Supplies:: No Equipment Needed Diet:: low fat Discharge Orders Discharge Orders: Discharge Order (Routine); Ordered 03/12/21 Ordered By: Lakshmi Chris DS: Summary Time Spent with Patient providing and/or coordinating discharge services: Greater than 30 minutes (approx 45) Status at Discharge Functional status at discharge: wheelchair bound Overall status at discharge: patient is back to baseline Mental Status: mental status grossly normal Speech and Movement: speech and movement normal Mood: congruent mood Affect: normal affect Exam Const General: cooperative, comfortable, no acute distress, not in acute distress, frail appearing and ill appearing chronically Nutritional Appearance: obese Orientation: alert, awake and oriented x3 HENMT Head: normal to inspection and normocephalic Mouth: oral mucosae normal and moist mucous membranes Eyes Conjunctivae: conjunctivae normal Sclera: sclerae normal EOM: EOM intact bilaterally Neck Neck: normal visual inspection, no lymphadenopathy and no JVD Thyroid: thyroid normal Resp Effort & Inspection: normal respiratory effort Auscultation: no rales, no rhonchi and no wheezes Cardio Rate: regular rate Heart Sounds: no gallops and no murmurs GI Inspection: normal to inspection and non-distended Palpation: no hepatosplenomegaly Skin Lesions: lesion noted Rashes: rashes noted Other: psiorasis Neuro General: patient awake Speech: speech normal Extrem General: normal to inspection Right lower extremity: no edema Left lower extremity: no edema Psych Mental Status: mental status grossly normal Speech and Movement: speech and movement normal Mood: congruent mood Affect: normal affect DS: Data Vitals/I&O Vitals and I&O: Vital Signs Temperature 37.3 C 03/12/21 08:11 Temperature Source Temporal Artery Scan 03/12/21 08:11 Pulse 68 03/12/21 08:11 Pulse Rhythm Regular 03/12/21 05:21 Respiratory Rate 18 03/12/21 08:11 Respiratory Effort Non-Labored 03/12/21 05:21 Respiratory Depth Normal 03/12/21 05:21 Respiratory Pattern Normal 03/12/21 05:21 Blood Pressure 118/80 03/12/21 08:11 Blood Pressure Position Sitting 03/10/21 22:20 Pulse Oximetry 94 03/12/21 08:11 Oxygen Delivery Method Room Air 03/12/21 08:11 Oxygen Flow Rate 0 03/12/21 08:11 Pain Level 7 03/12/21 08:11 Intake & Output 03/11/21 03/11/21 03/12/21 11:59 23:59 11:59 Intake Total 500 / 880 380 / 880 500 / 500 Output Total 300 / 900 600 / 900 400 / 400 Balance 200 / -20 -220 / -20 100 / 100 Weight 104 kg Intake: IV 500 / 500 500 / 500 Oral 380 / 380 Output: Urine 300 / 900 600 / 900 400 / 400 Other: Urine Color Straw Straw Light Kendal Urine Appearance Clear Clear Clear Urine Odor Normal Normal Stool Size Copious Copious Stool Characteristics Soft Brown Voiding Methods Urinal Bedside Commode Urinal Data Completed and Pending Completed studies during hospitalization [Text1]: CLINICAL HISTORY: hallucinations. TECHNIQUE: Imaging Protocol: Axial computed tomography images with coronal and sagittal reformatted images were created and reviewed COMPARISON: CT CT HEAD WO from 01/02/2021 FINDINGS: There are no skull fractures. Mucosal thickening is noted in the sphenoid sinus. This was previously present. There is no evidence of intracranial hemorrhage, mass effect, or shift of midline structures. There are no extra-axial fluid collections. The ventricles are not enlarged or shifted and there is no blood within the ventricular system nor within the basal cisterns. There is some bilateral periventricular hypodensity consistent with chronic small vessel disease. IMPRESSION: No acute intracranial findings on this noninfused CT scan of the brain. Chronic small-vessel white matter ischemic changes in the periventricular white matter noted. If clinically indicated follow-up MRI can be performed. Exam(s) a CT:CT abdomen & pelvis w Exam(s) CT ABDOMEN PELVIS W EXAM: CT ABDOMEN PELVIS W CLINICAL HISTORY: nausea, abdomen pain. TECHNIQUE: Imaging Protocol: Axial computed tomography images with coronal and sagittal reformatted images were created and reviewed CONTRAST MATERIAL: Intravenous: Omnipaque 100cc Oral: None COMPARISON: CT CT ABDOMEN PELVIS W from 02/10/2021 FINDINGS: VISUALIZED LUNG BASES: No nodules nor pleural effusions evident. ABDOMEN: There is a moderate amount of ascites again evident. There are prominent periesophageal varices, consistent with portal venous hypertension. LIVER: Cirrhotic appearing liver again noted. No obvious mass therein. GALLBLADDER/BILIARY: Cholelithiasis noted. Gallbladder wall thickness upper normal. CBD is not dilated. PANCREAS: There is an 11 x 12 millimeter hypodensity in the uncinate process of the pancreas again noted which is probably neoplastic. No other pancreatic lesions seen. Pancreatic duct upper normal size. SPLEEN: Splenomegaly again noted. No intrasplenic masses. Portal venous hypertension varices. ADRENALS: There are no significant adrenal masses. KIDNEYS:Right kidney unremarkable. There is a small nonobstructive calculus in the lower pole of the left kidney measuring 2 millimeters. No renal masses nor cysts evident.. ABDOMINAL AORTA: Abdominal aorta is not enlarged. LYMPH NODES:There is no retroperitineal nor paraaortic adenopathy. ABDOMINAL WALL: No evidence of significant anterior abdominal wall hernia. GI: There is no evidence of bowel obstruction, free air, nor abscess. PELVIS: GI: No evidence of appendicitis.No evidence of sigmoid diverticulitis. LYMPH NODES: There is no intrapelvic nor inguinal adenopathy. REPRODUCTIVE: Prostate is not enlarged. URINARY BLADDER: No calculi nor obvious masses evident OSSEOUS: No significant osseous lesions. Schmorl's node invagination in the superior endplate of L4 vertebral body which is unchanged from previous. IMPRESSION: 1. Advanced hepatic cirrhosis with splenomegaly and portal hypertension and varices. There are prominent paraesophageal varices again noted. No evidence of hepatic mass. 2. Cholelithiasis is noted. No obvious acute cholecystitis. Biliary tree is not dilated. 3. 12 x 11 millimeter cystic mass in the uncinate process of the pancreas is again noted, unchanged. Pancreatic duct is not dilated. : 1955ge: 65 Exam(s) PROCEDURE INFORMATION: Exam: CT Head Without Contrast Exam date and time: 03/10/2021 10:33 PM Age: 65 years old Clinical indication: Other: Hallucinations TECHNIQUE: Imaging protocol: Computed tomography of the head without contrast. Radiation optimization: All CT scans at this facility use at least one of these dose optimization techniques: automated exposure control; mA and/or kV adjustment per patient size (includes targeted exams where dose is matched to clinical indication); or iterative reconstruction. COMPARISON: CT HEAD WO 01/02/2021 4:55 AM FINDINGS: Brain: There is diffuse cerebral atrophy concordant with the patient's age. Chronic small vessel deep white matter ischemic disease is suggested by areas of patchy white matter low attenuation. No intracranial hemorrhage. No acute large territory CVA. No mass. No acute edema. No acute intracranial abnormality. Cerebral ventricles: No ventriculomegaly. Paranasal sinuses: Mucoperiosteal thickening of the sphenoid sinus with chronic appearance. There is also mild chronic maxillary and ethmoid sinus air cell disease.. No fluid levels. Mastoid air cells: Visualized mastoid air cells are well aerated. Bones/joints: Unremarkable. No acute fracture. Soft tissues: Unremarkable. IMPRESSION: 1. Age-related atrophy and chronic small vessel deep white matter ischemic disease. 2. No acute intracranial pathology. 3. Stable exam since 01/02/2021. : 1955ge: 65 Exam(s) PROCEDURE INFORMATION: Exam: CT Abdomen And Pelvis With Contrast Exam date and time: 03/10/2021 10:33 PM Age: 65 years old Clinical indication: Abdominal pain; Generalized; Patient HX: Nausea TECHNIQUE: Imaging protocol: Computed tomography of the abdomen and pelvis with contrast. Radiation optimization: All CT scans at this facility use at least one of these dose optimization techniques: automated exposure control; mA and/or kV adjustment per patient size (includes targeted exams where dose is matched to clinical indication); or iterative reconstruction. Contrast material: [id number]; Contrast volume: 100 ml; Contrast route: INTRAVENOUS (IV); COMPARISON: CT ABDOMEN PELVIS W 02/10/2021 11:50 AM FINDINGS: Heart: Cardiomegaly. Liver: Liver is relatively small with lobulated contour.There is diffuse decrease in hepatic parenchymal density, consistent with mild fatty infiltration. Gallbladder and bile ducts: Gallstones. No gallbladder wall thickening. No biliary ductal dilatation. Pancreas: No change in 12 mm lesion in uncinate process of the pancreas. Pancreatic atrophy. Main pancreatic duct top-normal in caliber. Spleen: Splenomegaly. Adrenal glands: Normal adrenal glands. Kidneys and ureters: Normal. No hydronephrosis. Stomach and bowel: Fairly extensive fat stranding remains about much of the colon. No obstruction. Gastric rugal prominence. Appendix: Normal appendix. Intraperitoneal space: No free intraperitoneal gas. Moderate ascites. Vasculature: No aortic aneurysm or dissection. Extensive abdominal and periesophageal varices. No intraluminal gas is demonstrated presently in portal venous tributaries. Lymph nodes: Unremarkable. No enlarged lymph nodes. Urinary bladder: Unremarkable as visualized. Reproductive: Unremarkable as visualized. Bones/joints: The spine demonstrates moderate degenerative changes at multiple levels. Soft tissues: Unremarkable. IMPRESSION: 1. No bowel obstruction. 2. Extensive fat stranding about the colon could be secondary to colitis or 3rd spacing of fluid. 3. Advanced cirrhosis complicated by development of portal hypertension, manifest with splenomegaly, varices and ascites. 4. Cholelithiasis. 5. Gastric rugal prominence. Correlate clinically for the presence of gastritis. 6. No change in lesion arising in uncinate process of the pancreas. Labs on day of discharge: Labs from last 24 hours 03/12/21 03/12/21 03/12/21 06:30 06:30 05:35 WBC 2.93 L RBC 3.64 L Hgb 12.0 L Hct 35.7 L MCV 98.1 H MCH 33.0 MCHC 33.6 RDW 15.9 H Plt Count MPV 11.7 H Immature Gran % 0.3 Neutrophils % 58.0 Lymphocytes % 23.9 Monocytes % 13.7 Eosinophils % 3.8 Basophils % 0.3 Nucleated RBC % 0 Absolute Neutrophils 1.70 Absolute Lymphocytes 0.70 L Absolute Monocytes 0.40 Absolute Eosinophils 0.11 Absolute Basophils 0.01 RBC Morphology Normal Sodium 141 Potassium 4.5 Chloride 106 Carbon Dioxide 30.0 Anion Gap 5.0 BUN 16 Creatinine 1.1 Estimated GFR/1.73 m2 >= 60.00 Glucose 146 H Calcium 8.8 Total Bilirubin 0.9 AST 41 H ALT 31 Alkaline Phosphatase 194 H Ammonia 78 H Total Protein 6.4 Albumin 2.4 L 03/11/21 03/11/21 03/11/21 09:55 09:55 09:55 WBC 3.61 L RBC 3.73 L Hgb 12.2 L Hct 36.6 L MCV 98.1 H MCH 32.7 MCHC 33.3 RDW 15.9 H Plt Count 110 L MPV 10.0 Immature Gran % 0.0 Neutrophils % 62.0 Lymphocytes % 20.8 Monocytes % 11.9 Eosinophils % 4.7 Basophils % 0.6 Nucleated RBC % 0 Absolute Neutrophils 2.24 Absolute Lymphocytes 0.75 L Absolute Monocytes 0.43 Absolute Eosinophils 0.17 Absolute Basophils 0.02 RBC Morphology Sodium 140 Potassium 4.5 Chloride 106 Carbon Dioxide 28.5 Anion Gap 5.5 BUN 12 Creatinine 1.0 Estimated GFR/1.73 m2 >= 60.00 Glucose 151 H Calcium 8.8 Total Bilirubin AST ALT Alkaline Phosphatase Ammonia 83 H Total Protein Albumin [facility] Medical History Acute pain of both shoulders Alcohol abuse, in remission Alcoholic cirrhosis of liver with ascites Anemia combination of hemolysis, iron deficiency, anemia of chronic disease, blood loss. 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 Obesity Old lacunar stroke without late effect right frontal and left parietal lobe lacunar infarcts on MRI brain from 04/2020 Palliative care patient Psoriasis Psoriatic arthritis Squamous cell carcinoma Streptococcal sepsis with septic left knee of armed forces Wheelchair bound awaiting prothesis Surgical History History of arthroplasty of left knee requiring explantation due to septic left knee Hx of AKA (above knee amputation) left leg due to complications of TKR S/P AKA (above knee amputation) unilateral Due to multiple infections in left knee prosthesis Family History Brother No problems noted. Social History Smoking/Tobacco Use Status: Never Smoking risk assessment performed?: Yes Alcohol Intake: former Substance use type: former substance user and crack/cocaine Caregiver/Support person: Yes Household members: caregiver Housing: assisted living facility Communication Needs: Hard of Hearing and Corrective Lenses Education Level: high school Do you need help understanding health information?: Always current occupation: disabled vet Pets and animals: No Current gender identity: male How often do you talk on the phone with friends or family?: three or more times per week How often do you get together with friends or relatives?: never Panel score (0-1 are the most socially isolated patients): 1 What type of physical activity do you participate in: sedentary lifestyle and wheelchair-bound Special johnny needs: No Seatbelt use: sometimes Water heater temp set <120 deg: Yes Working smoke detector in home: Yes Fire extinguisher in home: Yes Do you feel safe at home: Yes Additional Social history: 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 He has lived at [facility] assisted living since February 2020. His health care agent is his brother, Rich, who lives in [place]. Trey's most recent admission to an inpatient hospital was due him hallucinating and trembling, associated with his alcoholism. He was brought to [facility] by the [place] police department. Since he's been living at [facility], he's been sober. He is status post an AKA of his left leg. He says this began with an infection from a TKR. He admits that some months of his life are hard for him to remember. He is a vague historian. He is hoping to get a prosthesis fit and then move back to [facility] near his brother. [facility]. Covid-19 has slowed down the process.
[2021-03-12] MEDS: Lactulose 20 GM/30 ML CUP 30 GM PO (09:51)
--- NOTE | 2021-03-12 10:42 | CMDISCH_ITS ---
LACE Index Scoring Tool - Questions: Length of Stay (in days): 1 Acuity (Admit via E.D.?): Yes Comorbidities: Diabetes w/o Complication, Liver or Renal Disease E.D. Visits: 3 - Answers: Total Score: 12 Risk of Readmission: High Risk Care Management Discharge Reason for Hospitalization: Elevated Ammonia Level Discharge Plan: Perez will return to [facility] when ready per MD, he will be provided lactulose upon discharge for coverage until a new prescription is ordered. ROSIBEL coordinated MD signed orders, transport and [facility]. He will follow up with his PCP and plan of care as prescribed. He will transport via private vehicle with staff from [facility]. Patient/Family Education Needs: Review discharge instructions, discuss Ask Me Three.
[2021-03-12] MEDS: Betamethasone Dip. 0.05% CR 15 GM TUBE TP (10:46)
== END 2021-03-12 11:09 | disposition designated cancer center or children's hospital (05) ==
LOC: ER 03-11 01:31 → MS 03-11 02:18
PROVIDERS: Emergency Medicine; Nurse Practitioner Acute Care; Admitting Provider Family Medicine; Emergency Provider Student in an Organized Health Care Education/Training Program; PCP Nurse Practitioner Family; Visit Provider Family Medicine
DX: K70.40 Alcoholic hepatic failure without coma (principal); K70.31 Alcoholic cirrhosis of liver with ascites; T47.3X6A Underdosing of saline and osmotic laxatives, initial encounter; Z91.138 Patient's unintentional underdosing of medication regimen for other reason; K80.20 Calculus of gallbladder without cholecystitis without obstruction; D50.9 Iron deficiency anemia, unspecified; F41.9 Anxiety disorder, unspecified; F14.21 Cocaine dependence, in remission; E11.65 Type 2 diabetes mellitus with hyperglycemia; I85.10 Secondary esophageal varices without bleeding; L40.50 Arthropathic psoriasis, unspecified; B19.20 Unspecified viral hepatitis C without hepatic coma; Z89.612 Acquired absence of left leg above knee; I10 Essential (primary) hypertension; M54.5 Low back pain; E66.9 Obesity, unspecified; Z20.822 Contact with and (suspected) exposure to COVID-19
CPT/HCPCS: 36415; 80048; 80053; 83690; 87635; 93005; 96361; 96374; 99285; 70450; 74177; 80320; 81003; 82140; 82248; 83605; 83735; 84484; 85025; 85610; 85730; 93010; 99217; 99219; G0378; J2405; J3490

== ENCOUNTER 2021-03-19 11:41 | Outpatient (REF) | payer MEDICARE, SELFPAY ==
[2021-03-19 13:09] LABS: Magnesium 1.7 mg/dL (1.8-2.4)
[2021-03-19 13:13] LABS: Bilirubin Negative (Negative); Blood Negative (Negative); Clarity Clear (Clear); Glucose Negative (Negative); Ketones Negative (Negative); Leukocyte Esterase Negative (Negative); Nitrite Negative (Negative); Specific Gravity 1.015 (1.005-1.025); Urobilinogen 0.2 EU/dL (Up TO 0.2)
== END 2021-03-19 11:42 | disposition home or self-care (01) ==
LOC: NCHCN 11:41
PROVIDERS: PCP Nurse Practitioner Family; Visit Provider Nurse Practitioner Family
DX: R39.9 Unspecified symptoms and signs involving the genitourinary system (principal); R31.21 Asymptomatic microscopic hematuria; E83.42 Hypomagnesemia
CPT/HCPCS: 81003; 83735